=== PATIENT | female | born 1980 | race Caucasian/White ===

== ENCOUNTER 2024-11-21 08:40 | Inpatient (IN) | payer BC, SELFPAY ==
[2024-11-21] VITALS (17 sets, daily range): BP systolic 117–156; BP diastolic 77–101; PULSE 65–82; RESP 12–20; TEMP 36.2–37.1; O2SAT 94–100; BMI 39.5; BMI 39.4
--- NOTE | 2024-11-21 09:16 | PD.EDRME ---
Rapid Medical Screening Exam RME Arrival date/time: 11/21/24 08:40 Chief Complaint: Abdominal Pain Vital signs: Vital Signs Temperature 98.2 F 11/21/24 08:54 Pulse Rate 76 11/21/24 08:54 Respiratory Rate 17 11/21/24 08:54 Blood Pressure 136/91 H 11/21/24 08:54 Pulse Oximetry (%) 97 11/21/24 08:54 Oxygen Delivery Method Room Air 11/21/24 08:54 Pulse ox is 97% room air Vital signs reviewed by provider: Yes RME Narrative: Done by Dr. Zhu for abdominal pain workup. + POSITIVE FOR COLITIS
[2024-11-21 09:38] LABS: Lactate (Lactic Acid) 0.7 mMol/L (0.4-2.0)
[2024-11-21 09:46] LABS: Basophils # (Auto) 0.1 Thou/mm3 (0.0-0.2); Basophils % (Auto) 1 % (0-2.5); Eosinophils # (Auto) 0.2 Thou/mm3 (0.0-0.5); Eosinophils % (Auto) 3 % (0-10); Hematocrit 39.5 % (36.0-46.0); Hemoglobin 12.2 g/dL (12.0-16.0); Immature Granulocytes Auto 0.03 Thou/mm3 (0.00-0.00); Lymphocytes # (Auto) 2.3 Thou/mm3 (1.0-4.8); Lymphocytes % (Auto) 27 % (10-50); Mean Corpuscular HGB Conc 30.9 g/dl (31.0-37.0); Mean Corpuscular Hemoglobin 27.5 pg (25.0-35.0); Mean Corpuscular Volume 89 fL (80-100); Monocytes # (Auto) 0.7 Thou/mm3 (0.0-0.8); Monocytes % (Auto) 8 % (0-12); Neutrophils # (Auto) 5.1 Thou/mm3 (1.8-7.7); Neutrophils % (Auto) 61 % (37-80); Nucleated Red Blood Cell # 0.00 Thou/mm3 (0.00-0.00); Nucleated Red Blood Cell % 0 /100 WBC (0); Platelet Count 282 Thou/mm3 (140-440); RDW Standard Deviation 44.7 fL (36.4-46.3); Red Blood Count 4.43 Miln/mm3 (4.00-5.20); White Blood Count 8.4 Thou/mm3 (3.6-11.0)
--- NOTE | 2024-11-21 09:50 | XR_ITS ---
Examination: CT abdomen and pelvis without contrast. Coronal 3-D reconstructions. Sagittal 2-D reconstructions. Date and time of exam:November 21, 2024 1013 hours INDICATIONS: Blood in the stool generalized abdominal pain beginning 2 days ago CTDI: vol (mGy): 12.4 DLP: (mGycm): 811 Technique: Axial images of the abdomen have been obtained, 3 mm slice thickness Intravenous contrast material has not been administered. Low dose protocols were performed. One or more of the following dose reduction techniques were used; automated exposure control, adjustment of the mA and/or KV according to patient size, use of iterative reconstruction technique. Findings: No focal liver or splenic lesions No gallstones No pancreatic or adrenal mass. No renal or ureteral calculi, no hydronephrosis Calcified soft tissue mass in the left mesentery image 116, measuring 22 mm No bowel obstruction or nonspecific colitis pattern on this noncontrast study No diverticulitis Intact urinary bladder Absent uterus Moderate osteopenia IMPRESSION: Calcified soft tissue mass in the anterior left mesentery, 22 mm, clinical correlation advised No nonspecific colitis pattern on this noncontrast study No rectal wall thickening
[2024-11-21 10:02] LABS: Alanine Aminotransferase 59 U/L (10-49); Albumin, Serum 4.5 gm/dL (3.5-5.0); Albumin/Globulin Ratio 1.9 (1.2-2.2); Alkaline Phosphatase 88 U/L (46-116); Anion Gap 8 (7-16); Aspartate Amino Transferase 44 U/L (0-34); BUN/Creatinine Ratio 9 Ratio (12-20); Bilirubin,Total 0.3 mg/dL (0.3-1.2); Blood Urea Nitrogen 8 mg/dL (9-23); Calcium 9.6 mg/dL (8.3-10.6); Calcium (Corrected) 9.6 mg/dL (8.5-10.1); Carbon Dioxide 25.9 mMol/L (20.0-31.0); Chloride 107 mMol/L (98-107); Creatinine (Component) 0.9 mg/dL (0.6-1.3); Estimated Creatinine Clearance 113.6 mL/min (>60); Globulin 2.4 gm/dL (2.3-3.5); Glucose 91 mg/dL (74-106); Lipase 30 U/L (12-53); Osmolality,Calculated 279 (275-295); Potassium 4.1 mMol/L (3.4-5.1); Sodium 141 mMol/L (136-145); Total Protein 6.9 gm/dL (5.7-8.2); eGFR > 60 See Note
[2024-11-21 10:28] LABS: LDH (Lactate Dehydrogenase) 160 U/L (120-246)
--- NOTE | 2024-11-21 10:32 | EDNOTE_ITS ---
ED Abdominal Pain RME/HPI General Chief Complaint: Abdominal Pain Stated complaint: ABD PAIN, NO FOOD X 12 DAYS, SENT BY DR. ZHU Time seen by provider: 11/21/24 09:27 Arrival date/time: 11/21/24 08:40 RME / HPI RME / HPI narrative: Done by Dr. Zhu for abdominal pain workup. + POSITIVE FOR COLITIS DR. CHU MAIN ED EVALUATION 44 year old female with history of migraine headaches, hypertension presents to the ED for evaluation of abdominal pain beginning 12 days ago. Described as a bloating aching sensation that is located diffusely but most severe across lower abdomen, rating as moderate-severe. Accompanied by nausea, bloody vomiting, and bloody stools. States emesis is bright red with blood clots and stool is also bright red mush with blood clots. No mucous noted in stool. Accompanied by subjective fevers, chills, and sweats. Reportedly was evaluated at [facility] ER on 11/14/2024 and had imaging performed showing colitis. States she was discharged home with three different medications, one being an antibiotic. States she began the medications 4 days ago with no change. Consulted with GI Dr. Zhu yesterday and was advised to come to the ED for colonoscopy, endoscopy, and further management. Related Data Previous Rx's ?Medication ?Instructions ?Recorded oxycodone-acetaminophen 5 mg-325 1 tab PO Q8H PRN pain #30 tabs 11/22/21 mg tablet (Percocet) Allergies Allergy/AdvReac Type Severity Reaction Status Date / Time hydrocodone (From Vicodin) Allergy Intermediate ITCHY Verified 11/21/24 08:44 metoclopramide (From Reglan) Allergy Anxiety Verified 11/21/24 08:44 Review of Systems Review of Systems Systems Reviewed: All systems reviewed, normal except as documented Past Medical History Past Medical History NEUROLOGIC: Positive Migraine CARDIAC: Positive Hypercholesterolemia and Hypertension GASTROINTESTINAL: Positive Gastrointestinal Bleed REPRODUCTIVE: Positive Previous Pregnancies HEMATOLOGIC: Positive Anemia PSYCHO/SOCIAL: Positive Depression, Anxiety and Depression OTHER HISTORY: Positive Hospitalization and Anesthesia Reactions Family History FAMILY HISTORY: Positive Family Cardiac Disorders, Family Cancer and Family Surgery; Negative Family Psychiatric Problems, Family Respiratory Disorders, Family Gastrointestinal Problems or Family Anesthesia Reaction Surgical History SURGICAL: Positive Section (2018, 2020) Social History SMOKING STATUS: Never smoker SECOND HAND EXPOSURE: No ED Exam Narrative Physical exam: GENERAL APPEARANCE: alert and oriented x 4, well-developed, well-nourished, no acute distress HEENT: Normocephalic, atraumatic; pupils equal, round, reactive to light; EOMI; mucous membranes pink, moist; oropharynx clear NECK: Supple LUNGS: CTABL; no wheezes, no rales, no rhonchi HEART: Regular rate, regular rhythm; normal S1, S2; no murmurs ABDOMEN: non distended; normal BS; soft, no tenderness, no guarding, no rebound; no masses, no organomegaly, no hernia BACK: no CVA tenderness EXTREMITIES: atraumatic; no edema NEUROLOGIC: awake; alert and oriented x4; cranial nerves II-XII grossly intact; no focal sensory or motor deficits PSYCHIATRIC: appropriate mood and affect SKIN: warm, dry, normal color; no rashes Course Quality Measures none Orders Category Date Time Status Admit to Inpatient Status Routine Admission 11/21/24 12:23 Active Patient Condition Routine Admission 11/21/24 12:23 Ordered Aspiration precautions NOW Care 11/21/24 12:[address] Screening NOW Care 11/21/24 09:[address] Screening X1 Care 11/21/24 09:20 Completed Miscellaneous Nursing Order NOW Care 11/21/24 12:29 Active NPO NOW Care 11/21/24 12:24 Active Notify provider NEEDED Care 11/21/24 12:23 Active Sequential Compression Device QSHIFT Care 11/21/24 12:23 Active Consult to Gastroenterology Stat Cons 11/21/24 12:26 Ordered Diet NPO (NOW) Diet 11/21/24 12:[address] abdomen pelvis wo con Stat Exams 11/21/24 09:50 Completed CBC AM DRAW Lab 11/22/24 05:00 Ordered CBC AM DRAW Lab 11/23/24 05:00 Ordered CBC AM DRAW Lab 11/24/24 05:00 Ordered CBC Stat Lab 11/21/24 09:25 Completed Comprehensive Metabolic Panel AM DRAW Lab 11/22/24 05:00 Ordered Comprehensive Metabolic Panel AM DRAW Lab 11/23/24 05:00 Ordered Comprehensive Metabolic Panel AM DRAW Lab 11/24/24 05:00 Ordered Comprehensive Metabolic Panel Stat Lab 11/21/24 09:25 Completed Drug Screen,Urine Stat Lab 11/21/24 10:30 Completed LDH (Lactate Dehydrogenase) Stat Lab 11/21/24 09:25 Completed Lactate (Lactic Acid) Stat Lab 11/21/24 09:25 Completed Lipase Stat Lab 11/21/24 09:25 Completed Lipid Panel AM DRAW Lab 11/22/24 05:00 Ordered Magnesium AM DRAW Lab 11/22/24 05:00 Ordered Magnesium AM DRAW Lab 11/23/24 05:00 Ordered Magnesium AM DRAW Lab 11/24/24 05:00 Ordered Partial Thromboplastin Time Routine Lab 11/22/24 12:25 Ordered Phosphorous AM DRAW Lab 11/22/24 05:00 Ordered Phosphorous AM DRAW Lab 11/23/24 05:00 Ordered Phosphorous AM DRAW Lab 11/24/24 05:00 Ordered Prolactin* Stat Lab 11/21/24 09:25 Received Prothrombin Time with INR Routine Lab 11/22/24 12:25 Ordered Sed Rate (ESR) Stat Lab 11/21/24 09:25 Completed Thyroid Stimulating Hormone AM DRAW Lab 11/22/24 05:00 Ordered UA, C/S IF [Urinalysis, C/S if Indicated] Stat Lab 11/21/24 10:30 Completed HYDROmorphone INJ [Dilaudid Inj] Med 11/21/24 11:55 Discontinued 0.5 mg IVP X1 ONE Ondansetron Inj [Zofran Inj] Med 11/21/24 12:23 Active 4 mg IVP Q6H PRN Ondansetron Inj [Zofran Inj] Med 11/21/24 11:55 Discontinued 4 mg IVP X1 ONE Pantoprazole Inj [Protonix Inj] Med 11/22/24 09:00 Ordered 40 mg IVP QDAY Code Status Routine Oth 11/21/24 12:23 Ordered Vital Signs Vital signs: Vital Signs Temperature 98.2 F 11/21/24 08:54 Pulse Rate 76 11/21/24 08:54 Respiratory Rate 17 11/21/24 08:54 Blood Pressure 136/91 H 11/21/24 08:54 Pulse Oximetry (%) 97 11/21/24 08:54 Oxygen Delivery Method Room Air 11/21/24 08:54 Pulse ox is 97% on room air which is adequate. Abdominal Pain MDM MDM Narrative MDM Narrative:: Yvonne Blackwell am scribing for and in the presence of Dr. Chu. Patient data External records reviewed:: [facility] previous records (I reviewed ED visit on 01/31/2022 ) Clinical information provided by:: patient Social determinants that could affect healthcare access:: substance use (Marijuana ) Patient has the following chronic illnesses:: Hypertension, recently diagnosed with colitis How is presenting disease/condition affected by chronic disease/condition?: exacerbated by Evaluation data The following diagnostics were reviewed and interpreted by me:: lab results and radiology exam(s) Lab and/or radiology exams considered but not ordered:: None Interpretation Summary: Ordering Physician: Kaushik Schroeder PA-C Date of Service: 11/21/24 Procedure(s): CT abdomen pelvis wo con Accession Number(s): [id number] cc: Javier Pino MD; Alex Hammond MD; Kaushik Schroeder PA-C~ Examination: CT abdomen and pelvis without contrast. Coronal 3-D reconstructions. Sagittal 2-D reconstructions. Date and time of exam:November 21, 2024 1013 hours INDICATIONS: Blood in the stool generalized abdominal pain beginning 2 days ago CTDI: vol (mGy): 12.4 DLP: (mGycm): 811 Technique: Axial images of the abdomen have been obtained, 3 mm slice thickness Intravenous contrast material has not been administered. Low dose protocols were performed. One or more of the following dose reduction techniques were used; automated exposure control, adjustment of the mA and/or KV according to patient size, use of iterative reconstruction technique. Findings: No focal liver or splenic lesions No gallstones No pancreatic or adrenal mass. No renal or ureteral calculi, no hydronephrosis Calcified soft tissue mass in the left mesentery image 116, measuring 22 mm No bowel obstruction or nonspecific colitis pattern on this noncontrast study No diverticulitis Intact urinary bladder Absent uterus Moderate osteopenia IMPRESSION: Calcified soft tissue mass in the anterior left mesentery, 22 mm, clinical correlation advised No nonspecific colitis pattern on this noncontrast study No rectal wall thickening Dictated By: Alex Hammond MD Signed By: <Electronically signed by Alex Hammond MD in OV> 11/21/24 1154 Medications / Prescriptions Medications or Prescriptions considered but not ordered:: None Medication administrations:: Medication Administration History Ondansetron HCl (Ondansetron Inj 2 Mg/Ml Inj 2 Ml) 4 mg IVP Q6H PRN; Protocol PRN Reason: NAUSEA OR VOMITING Stop: 12/21/24 12:22 Pantoprazole Sodium (Pantoprazole Inj 40 Mg Vial) 40 mg IVP QDAY ROSAURA Stop: 12/22/24 08:59 Discontinued Medications Hydromorphone HCl (Hydromorphone Inj 2 Mg/Ml Vial) 0.5 mg IVP X1 ONE Stop: 11/21/24 11:56 Last Admin: 11/21/24 12:31 Dose: 0.5 mg Documented By: FELIPE Ondansetron HCl (Ondansetron Inj 2 Mg/Ml Inj 2 Ml) 4 mg IVP X1 ONE; Protocol Stop: 11/21/24 11:56 Last Admin: 11/21/24 12:29 Dose: 4 mg Documented By: FELIPE See above Consultations Consultation(s) initiated? (list below): Yes Consultation #1 (Physician, Specialty, Details): I spoke with residents working with Dr. Bowers. Discussed patients PMHx, HPI, ED course, exam findings, labs, and radiology results. The hospitalist agree to accept the patient for admission. Diagnosis Differential diagnosis abdominal pain: abdominal pain, diverticulitis and other (colitis ) Most likely diagnosis given after review of the tests above:: Abdominal pain Admission Indicated Admission indicated?: indicated Admission Request Was there a request for admission?: Yes Admission Attestation Admission request attestation: Discussed case with [] from Hospitalist service regarding admission. Discussed patients ED course, exam findings, labs, and radiology results. The Hospitalist [agrees,declines] to accept the patient for admission. Disposition Plan Disposition Plan: Admit Discharge Plan Plan Patient Disposition: Admit Acute Care w/in Hospital Prescriptions/Referrals Prescriptions/Med Rec: No Action oxycodone-acetaminophen [Percocet] 5-325 mg tablet 1 tab PO Q8H MDD 15 PRN (Reason: pain) Qty: 30 0RF Referrals: Javier Pino MD [Primary Care Provider] - In 1 week Problem List Clinical Impression: Abdominal pain Patient/Caregiver Discharge Instructions Print Language: Ukrainian Stand Alone Forms: Tarah Award Info., Patient Portal Info Letter
[2024-11-21 10:49] LABS: Sed Rate (ESR) 55 mm/hr (0-20)
[2024-11-21 11:03] LABS: Collection Type, Urine Clean Catch
[2024-11-21 11:16] LABS: Bacteria,Urine Rare; Bilirubin,Urine Negative (Negative); Blood,Urine Negative (Negative); Clarity,Urine Clear (Clear/Hazy); Color,Urine Yellow (Lt Yel-Yel); Culture Indicated,Urine Not Indicated; Glucose, Urine Negative (Negative); Ketones,Urine Trace (Negative); Leukocyte Esterase,Urine Negative (Negative); Nitrite,Urine Negative (Negative); PH,Urine 6.5 (5.0-7.0); Protein,Urine Trace (Neg - Trace); RBC,Urine 3 /hpf (0-3); Specific Gravity,Urine 1.020 (1.001-1.035); Squamous Epithelial Cell,Urine 5 /hpf (0-5); Urobilinogen,Urine Negative mg/dL (0.0-1.0); WBC,Urine 1 /hpf (0-5)
[2024-11-21 11:25] LABS: Amphetamine/Methamp Scrn,U Negative (Negative); Barbiturate Screen,Urine Negative (Negative); Benzodiazepines Screen,Urine Positive (Negative); Benzoylecgonine Screen, Ur Negative (Negative); Fentanyl Screen,Urine Positive (Negative); Opiate Screen,Urine Negative (Negative); THC Screen,Urine Positive (Negative)
[2024-11-21] MEDS: ONDANSETRON INJ 2 MG/ML INJ 2 ML 4 MG IVP ×2 (12:29→23:08)
[2024-11-21] MEDS: HYDROmorphone INJ 2 MG/ML VIAL 0.5 MG IVP (12:31)
--- NOTE | 2024-11-21 15:25 | PC.NURSE ---
Patient states pain 10/10 in head and stomach. Informed hospitalist via phone and awaiting further orders.
--- NOTE | 2024-11-21 17:01 | ESCONSULT_ITS ---
HPI Data of Consult Requesting Physician: Og Bowers MD Primary Care Provider: Javier Pino MD Consult Narrative Reason for consult: Hematemesis, hematochezia, nausea vomiting, pain abdomen History of present illness: 44 years old female sent to the emergency room by me as she appeared very sick on examination in the office For the last 3 weeks she has [facility] [place] [facility] scan of the abdomen pelvis there showed diffuse colitis she was sent home on antibiotics no relief She cannot keep anything down Losing weight has intractable nausea vomiting with hematemesis and hematochezia She was sent to the emergency room but after discussion with the ER physician patient was subsequently admitted for further evaluation and management CT scan of the abdomen pelvis without contrast showed 22 mm mass in the anterior mesentery otherwise negative cc:: cc: Og Bowers MD Review of Systems Review of Systems Systems Reviewed: All systems reviewed, normal except as documented Past Medical History Surgical History OTHER SURGICAL HX: Migraine headaches Depression x 2 Meds Home Medications and Allergies Allergies Allergy/AdvReac Type Severity Reaction Status Date / Time hydrocodone (From Vicodin) Allergy Intermediate ITCHY Verified 11/21/24 08:44 metoclopramide (From Reglan) Allergy Anxiety Verified 11/21/24 08:44 Exam Vital Signs Temp Pulse Resp BP Pulse Ox O2 Del Method 97.8 F 69 19 133/87 H 95 Room Air 11/21/24 16:28 11/21/24 16:28 11/21/24 16:28 11/21/24 16:28 11/21/24 16:28 11/21/24 16:28 Constitutional Comments: Chronically ill-appearing Routine Respiratory Exam Comments: Normal to auscultation Routine Abdominal Exam Comments: Generalized tenderness positive bowel sounds Results Labs 11/21/24 09:25 11/21/24 09:25 Labs: Short CBC 11/21/24 Range/Units 09:25 WBC 8.4 (3.6-11.0) Thou/mm3 Hgb 12.2 (12.0-16.0) g/dL Hct 39.5 (36.0-46.0) % Plt Count 282 (140-440) Thou/mm3 BMP 11/21/24 09:25 Sodium 141 Potassium 4.1 Chloride 107 Carbon Dioxide 25.9 BUN 8 L Creatinine 0.9 Glucose 91 Calcium 9.6 Liver Function 11/21/24 Range/Units 09:25 Total Bilirubin 0.3 (0.3-1.2) mg/dL AST 44 H (0-34) U/L ALT 59 H (10-49) U/L Alkaline Phosphatase 88 (46-116) U/L Albumin 4.5 (3.5-5.0) gm/dL Urine 11/21/24 Range/Units 10:30 Urine Color Yellow (Lt Yel-Yel) Urine Clarity Clear (Clear/Hazy) Urine pH 6.5 (5.0-7.0) Ur Specific [place] 1.020 (1.001-1.035) Urine Protein Trace (Neg - Trace) Urine Glucose (UA) Negative (Negative) Assessment and Plan Additional Assessment & Plan Additional Plan: # Nausea vomiting # Hematemesis # Hematochezia # Abnormal CT scan of the abdomen pelvis Plan Consent obtained for fiberoptic esophagogastroduodenoscopy with possible biopsy possible therapeutic intervention under intravenous moderate sedation n.p.o. IV Protonix Effective pain control if the EGD is negative we will consider doing a fiberoptic colonoscopy after GoLytely prep provided the patient can tolerate GoLytely Thank you again for the opportunity to participate in the care of this patient Other medical problems include Migraine headaches Anxiety neurosis 22 mm mass in the anterior mesentery will follow with the imaging studies as well as will discuss the case with the IR to see if this can be biopsied
[2024-11-21] MEDS: MORPHINE SULF INJ 10 MG/ML VIAL 4 MG IVP ×2 (17:10→21:46)
[2024-11-21 18:27] LABS: HCG,Qualitative Serum Negative
--- NOTE | 2024-11-21 19:14 | PC.NURSE ---
Report given to Rachael MAHARAJ via phone. Will transfer patient to floor upon completion of endoscopy.
--- NOTE | 2024-11-21 20:20 | ESHP_ITS ---
<Statement entered by Manuel Sanford MD - 11/22/24 07:54> Senior Resident Attestation: I supervised/discussed management plan with internet e commerce specialist physician Dr. Morgan, and was involved in the care of this patient. I personally saw and examined the patient and discussed the assessment and plan with the entire medicine team, including my attending. I agree with the assessment and plan as documented. Patient is a 44 years old female with PMH of migraine headaches and hypertension was referred to the emergency department by Dr. Zhu for further evaluation of intractable generalized abdominal pain, nausea, and multiple episodes of hematemesis and hematochezia for 12 days. Patient was planned for endoscopy on the same day, placed on NPO and admitted for further management. Patient's care was discussed with attending physician, Dr. Bowers. Manuel Sanford MD PGY-3. Documentation for date of: 11/21/24 HPI History of Present Illness History of present illness: 44-year-old female with a past medical history of migraine headaches and hypertension was referred to the emergency department by Dr. Zhu for further evaluation of intractable generalized abdominal pain, nausea, and multiple episodes of hematemesis and hematochezia for 12 days. The patient had initially presented to [facility] ED on 11/14 with complaints of a severe migraine. She returned to the [facility] ED on 11/17 due to worsening abdominal pain. A CT abdomen/pelvis with contrast revealed findings consistent with colitis, and she was discharged on ciprofloxacin 500 mg BID and metronidazole 500 mg BID, which she did not complete. Following discharge, she experienced persistent and worsening symptoms, including diffuse abdominal pain, ongoing nausea and vomiting, and an inability to tolerate oral intake. She described the abdominal pain as a cramping twisting sensation in the lower abdomen. She endorsed unintentional weight loss, fevers, chills, diaphoresis, and dysuria. ED Course - Vitals: BP 136/91, HR 76, RR 17, T 98.2F, O2 Sat 97% on room air - Labs: WBC 3.4, hemoglobin 12.2, hematocrit 39.5, platelet 282, ESR 55, BUN 8, creatinine 0.9, AST 44, ALT 59, alkaline phosphatase 88, total bilirubin 0.3. UA negative. Urine tox: positive for fentanyl, benzodiazepine, and THC. - Imaging: CT abd/pelvis showed calcified soft tissue mass in the anterior left mesentery, 22 mm, no nonspecific colitis pattern. - Treatment: Ondansetron 4mg x1, Hydromorphone 0.5 mg x1 Review of Systems Review of Systems Narrative Review of Systems: All 13 review of systems are negative except as listed above in the HPI. Past Medical History Past Medical History Comments PMH COMMENT: Past Medical History: as above Surgical History: in 2019 and 2021, hysterectomy 2021 Family History: Dad had kidney failure, CLL, bladder cancer. DM in both parents. Social History: Denies history of smoking, denies current alcohol use, denies recreational drug use Current Medications: pending med recs Allergies: hydrocodone from Vicodin (itchy) Exam Vital Signs Temp Pulse Resp BP Pulse Ox O2 Del Method O2 Flow Rate 98.2 F 73 12 134/96 H 98 Room Air 3 11/21/24 18:07 11/21/24 20:15 11/21/24 20:15 11/21/24 20:15 11/21/24 20:15 11/21/24 18:07 11/21/24 20:15 Narrative Exam Physical Exam General: Awake and in no acute distress. Conversational and non-toxic appearing. HEENT: Normocephalic, atraumatic, mucous membranes moist. Heart: Regular rate and rhythm, no murmurs. Lungs: Clear to auscultation with no wheezing or crackles. Abdomen: Soft, nondistended, tender to superficial palpation in lower abdomen. No guarding or rebound tenderness. Neurologic: Alert and oriented x3, no gross neurological deficit, and patient able to move all 4 extremities. Extremities: No edema. Skin: No rash or ecchymoses. Results: Labs 11/22/24 05:02 11/22/24 05:02 Labs: Short CBC 11/21/24 Range/Units 09:25 WBC 8.4 (3.6-11.0) Thou/mm3 Hgb 12.2 (12.0-16.0) g/dL Hct 39.5 (36.0-46.0) % Plt Count 282 (140-440) Thou/mm3 BMP 11/21/24 09:25 Sodium 141 Potassium 4.1 Chloride 107 Carbon Dioxide 25.9 BUN 8 L Creatinine 0.9 Glucose 91 Calcium 9.6 Liver Function 11/21/24 Range/Units 09:25 Total Bilirubin 0.3 (0.3-1.2) mg/dL AST 44 H (0-34) U/L ALT 59 H (10-49) U/L Alkaline Phosphatase 88 (46-116) U/L Albumin 4.5 (3.5-5.0) gm/dL Urine 11/21/24 Range/Units 10:30 Urine Color Yellow (Lt Yel-Yel) Urine Clarity Clear (Clear/Hazy) Urine pH 6.5 (5.0-7.0) Ur Specific Bureau 1.020 (1.001-1.035) Urine Protein Trace (Neg - Trace) Urine Glucose (UA) Negative (Negative) Quality Measures Quality Measures none Medications Home Medications and Allergies Home Medications ?Medication ?Instructions ?Recorded ?Confirmed ?Type Ambien See Rx Instructions .Route 0 11/21/24 11/21/24 History .COMPLEX insomnia clonazepam 1 mg tablet 2 mg PO Q12H 11/21/24 History lisinopril 10 2 tab PO HS 11/21/24 5 History mg-hydrochlorothiazide 12.5 mg tablet rimegepant 75 mg disintegrating 75 mg PO QDAY PRN migr montrell headache 11/21/24 11/21/24 History tablet (Nurtec ODT) sertraline 100 mg tablet (Zoloft) 100 mg PO HS 5 11/21/24 History Allergies Allergy/AdvReac Type Severity Reaction Status Date / Time hydrocodone (From Vicodin) Allergy Intermediate ITCHY Verified 11/21/24 08:44 metoclopramide (From Reglan) Allergy Anxiety Verified 11/21/24 08:44 Visit Medications Acetaminophen (Acetaminophen 325 Mg Tablet) 650 mg PO Q6H PRN PRN Reason: Fever >101.5 Stop: 12/21/24 14:07 Diphenhydramine HCl (Diphenhydramine Inj 50 Mg/Ml Vial) 25 mg IVP [id number] PRN PRN Reason: MODERATE SEDATION Stop: 11/21/24 21:53 Fentanyl Citrate (Fentanyl Cit Inj 50 Mcg/Ml Amp 2ml) 50 mcg IVP Q2M PRN PRN Reason: MODERATE SEDATION Stop: 11/21/24 21:53 Midazolam HCl (Midazolam Inj 1 Mg/Ml Vial 2 Ml) 2 mg IVP Q2M PRN PRN Reason: Moderate Sedation Stop: 11/21/24 21:53 Morphine Sulfate (Morphine Sulf Inj 10 Mg/Ml Vial) 4 mg IVP Q6HR PRN PRN Reason: PAIN SCALE 4-6 (Moderate Stop: 11/26/24 16:34 Last Admin: 11/21/24 17:10 Dose: 4 mg Ondansetron HCl (Ondansetron Inj 2 Mg/Ml Inj 2 Ml) 4 mg IVP Q6H PRN; Protocol PRN Reason: NAUSEA OR VOMITING Stop: 12/21/24 12:22 Pantoprazole Sodium (Pantoprazole Inj 40 Mg Vial) 40 mg IVP QDAY ROSAURA Stop: 12/22/24 08:59 Sennosides (Senna Tablet) 1 tab PO QDAY PRN; Protocol PRN Reason: constipation Stop: 12/21/24 14:07 Discontinued Medications Benzocaine (Benzocaine 20% (Hurricaine) [place] 1 Dose) 1 dose TOP X1 ONE Stop: 11/21/24 19:54 Hydromorphone HCl (Hydromorphone Inj 2 Mg/Ml Vial) 0.5 mg IVP X1 ONE Stop: 11/21/24 11:56 Last Admin: 11/21/24 12:31 Dose: 0.5 mg Ondansetron HCl (Ondansetron Inj 2 Mg/Ml Inj 2 Ml) 4 mg IVP X1 ONE; Protocol Stop: 11/21/24 11:56 Last Admin: 11/21/24 12:29 Dose: 4 mg Assessment & Plan Plan 44-year-old female with history of migraines and hypertension presenting with 12 days of intractable lower abdominal pain, nausea, hematemesis, and hematochezia, admitted for concern of GI bleed. #GI bleed (upper vs lower vs unknown source) # Hematemesis # Hematochezia Hemoglobin currently stable at 12.2. Plan - GI consulted - plan for EGD today 11/21. If EGD is negative, consider doing a colonoscopy provided the patient can tolerate GoLytely. - Monitor H/H - Type and screen - Maintain NPO - Avoid NSAIDs and anticoagulants - Start Pantoprazole 40 mg BID #Intractable abdominal pain Persistent symptoms despite antibiotics for presumed colitis. Ongoing diffuse lower abdominal pain with poor oral intake and weight loss Plan - Ondansetron 4 mg Q6H for nausea - IV Morphine 4 mg Q6H PRN for pain control Chronic conditions #Migraine headaches #Hypertension - Continue monitoring BP Health Maintenance Deposition: Med/Surg DVT prophylaxis: Sequential Compression Device GI prophylaxis: Pantoprazole 40 mg IV BID Diet: NPO Mccormick: None Lines: Peripheral IV CODE STATUS: FULL Patient plan of care was discussed with the senior resident, Dr. Sanford, and attending physician, Dr. Bowers. Melvin Morgan, PGY-1 Attending Provider Attestation/Addendum I have examined the patient, reviewed labs and imaging findings, discussed the case with the resident(s), and reviewed entered orders. I agree with the plan of care as outlined in this note, with these additional summaries/recommendations: After examination of the patient and review of the clinical data, I feel that this patient needs admission to the hospital for further treatment and evaluation. Patient seen at bedside. She was seen by outpatient provider who recommended she go to the emergency room. She endorses hematemesis, bright red blood in stool, and intractable abdominal pain. Patient diagnosed with GI bleed. Start PPI, IVF, and NPO. Gastroenterology consulted with plans for endoscopic. If no source found then he will likely proceed with colonoscopy. Patient reports she recently had an imaging study done which showed colitis and symptoms may be representing IBD. Continue pain management. Hold all chemical anticoagulation, NSAIDs, aspirin, steroids, alcohol, and smoking. Patient also noted to have minimal transaminitis which we will monitor for now. Repeat LFTs in AM. U-Tox positive for fentanyl, benzodiazepines, and THC. We will discuss results with patient. Hold home medicines for now. Patient updated on the plan and agreement. All questions answered to satisfaction. Please see residents note for additional details and management. Dr. Elissa MD
--- NOTE | 2024-11-21 20:57 | SUR.PHASEI ---
PATIENT DRINKING 7UP, TOLERATING WELL.
[2024-11-21] MEDS: NA SU/NAHCO3/KC/PEG (Golytely) 4,000 ML BTL 4000 ML PO (21:55)
[2024-11-21] MEDS: SERTRALINE HCL 25 MG TABLET 100 MG PO (23:08)
[2024-11-22] VITALS (19 sets, daily range): BP systolic 115–163; BP diastolic 58–104; PULSE 7–89; RESP 12–20; TEMP 35.9–37.1; O2SAT 94–100; BMI 39.5
[2024-11-22] MEDS: MORPHINE SULF INJ 10 MG/ML VIAL 4 MG IVP (03:18)
[2024-11-22] MEDS: ONDANSETRON INJ 2 MG/ML INJ 2 ML 4 MG IVP ×4 (05:40→23:29)
[2024-11-22 06:02] LABS: Basophils # (Auto) 0.0 Thou/mm3 (0.0-0.2); Basophils % (Auto) 0 % (0-2.5); Eosinophils # (Auto) 0.2 Thou/mm3 (0.0-0.5); Eosinophils % (Auto) 3 % (0-10); Hematocrit 36.5 % (36.0-46.0); Hemoglobin 11.6 g/dL (12.0-16.0); Immature Granulocytes Auto 0.03 Thou/mm3 (0.00-0.00); Lymphocytes # (Auto) 2.2 Thou/mm3 (1.0-4.8); Lymphocytes % (Auto) 32 % (10-50); Mean Corpuscular HGB Conc 31.8 g/dl (31.0-37.0); Mean Corpuscular Hemoglobin 28.0 pg (25.0-35.0); Mean Corpuscular Volume 88 fL (80-100); Monocytes # (Auto) 0.6 Thou/mm3 (0.0-0.8); Monocytes % (Auto) 8 % (0-12); Neutrophils # (Auto) 3.9 Thou/mm3 (1.8-7.7); Neutrophils % (Auto) 56 % (37-80); Nucleated Red Blood Cell # 0.00 Thou/mm3 (0.00-0.00); Nucleated Red Blood Cell % 0 /100 WBC (0); Platelet Count 227 Thou/mm3 (140-440); RDW Standard Deviation 43.9 fL (36.4-46.3); Red Blood Count 4.14 Miln/mm3 (4.00-5.20); White Blood Count 7.0 Thou/mm3 (3.6-11.0)
[2024-11-22 06:38] LABS: Alanine Aminotransferase 56 U/L (10-49); Albumin, Serum 4.0 gm/dL (3.5-5.0); Albumin/Globulin Ratio 1.8 (1.2-2.2); Alkaline Phosphatase 80 U/L (46-116); Anion Gap 8 (7-16); Aspartate Amino Transferase 43 U/L (0-34); BUN/Creatinine Ratio 9 Ratio (12-20); Bilirubin,Total 0.3 mg/dL (0.3-1.2); Blood Urea Nitrogen 7 mg/dL (9-23); Calcium 9.3 mg/dL (8.3-10.6); Calcium (Corrected) 9.3 mg/dL (8.5-10.1); Carbon Dioxide 28.6 mMol/L (20.0-31.0); Cardiac Risk Estimate 7.3 RATIO (3.7-5.6); Chloride 103 mMol/L (98-107); Cholesterol 190 mg/dL (132-200); Creatinine (Component) 0.8 mg/dL (0.6-1.3); Estimated Creatinine Clearance 127.5 mL/min (>60); Globulin 2.2 gm/dL (2.3-3.5); Glucose 76 mg/dL (74-106); HDL Cholesterol 26 mg/dL (40-60); LDL Cholesterol,Calculated 135 mg/dL (0-130); Magnesium 2.0 mg/dL (1.6-2.6); Osmolality,Calculated 276 (275-295); Phosphorous 3.1 mg/dL (2.4-5.1); Potassium 3.9 mMol/L (3.4-5.1); Sodium 140 mMol/L (136-145); Thyroid Stimulating Hormone 1.87 uIU/mL (0.55-4.78); Total Protein 6.2 gm/dL (5.7-8.2); Triglycerides 143 mg/dL (30-150); eGFR > 60 See Note
[2024-11-22] MEDS: HYDROmorphone INJ 2 MG/ML VIAL 1 MG IVP ×2 (09:36→22:08)
[2024-11-22 12:56] LABS: INR 1.0 (0.9-1.3); Partial Thromboplastin Time 31.2 Seconds (22.0-36.0); Prothrombin Time 11.4 Seconds (9.0-12.2)
--- NOTE | 2024-11-22 15:57 | PC.SS ---
Patient is 44 year old female presenting to the hospital for GI bleeding. PIPE OR STEAM FITTER FURNACE INSTALLER made contact with patient at bedside and explained role and reason for visit. PIPE OR STEAM FITTER FURNACE INSTALLER confirmed demographic information with patient. Patient stated that her next of kin is Jered Gonzalez phone: [phone]. Emergency contact is mother Clare [phone]. Patient stated that her PCP is Dr. Pino last appointment was on 11/02/24. Patient reported that she is unemployed, does not use DME, and would like to d/c home once medically clear. Patient stated that will provide transportation. Patient has no other questions or concerns. PCP: Dr. Pino Next of kin: Jered Turnerck D/c: home
--- NOTE | 2024-11-22 16:02 | ESPR_ITS ---
<Statement entered by Roni Valadez MD - 11/22/24 23:14> Patient was examined and case was reviewed with team including attending physician. Note reviewed, I agree with most of its contents and agree with the patient's care as documented by Dr. Morgan Patient seen today at the bedside found awake, alert, orientedx3. No overnight events reported. Vital signs stable at this time. No more episodes of hematemesis at this time. Patient had endoscopy done which showed some esophageal ulcers. Plan is to pursue colonoscopy as patient endorsed pancho blood per rectum with stooling. Will continue to monitor daily CBCs. Case discussed with my attending Dr. Elissa Valadez MD PGY-2 Documentation for date of: 11/22/24 Subjective Subjective Interval history: Patient was seen at the bedside this morning. No overnight events reported. She stated that morphine is worsening her migraines and requested a switch to Dilaudid, which was effective in the ED yesterday. She also requested a change in her clonazepam regimen, noting that she typically takes 2 mg in the morning and at bedtime, but only received one dose last night. Patient reported that her will be bringing in her home medication, Nurtec, which she takes as needed for migraines. She noted a sore abdomen after completing her GoLYTELY prep last night and continues to feel weak and fatigued. However, her sore throat?attributed to frequent pre-admission vomiting?has improved. She is passing flatus and denies chest pain or any further episodes of vomiting. Exam Vital Signs Temp Pulse Resp BP Pulse Ox O2 Del Method O2 Flow Rate 96.8 F 71 16 124/94 H 96 Room Air 3 11/22/24 12:11/22/24 12:11/22/24 12:11/22/24 12:11/22/24 12:11/22/24 12:11/21/24 20:25 Narrative Exam Physical Exam General: Awake and in no acute distress. Conversational and non-toxic appearing. HEENT: Normocephalic, atraumatic, mucous membranes moist. Heart: Regular rate and rhythm, no murmurs. Lungs: Clear to auscultation with no wheezing or crackles. Abdomen: Soft, nondistended, tender to superficial palpation in lower abdomen. No guarding or rebound tenderness. Neurologic: Alert and oriented x3, no gross neurological deficit, and patient able to move all 4 extremities. Extremities: No edema. Skin: No rash or ecchymoses. Objective Labs 11/23/24 05:00 11/23/24 05:00 Labs: Laboratory Results - last 24 hr 11/21/24 11/21/24 11/22/24 17:26 22:35 05:02 WBC 7.0 RBC 4.14 Hgb 11.6 L Hct 36.5 MCV 88 MCH 28.0 MCHC 31.8 RDW Std Deviation 43.9 Plt Count 227 D Neut % (Auto) 56 Lymph % (Auto) 32 [place] % (Auto) 8 Eos % (Auto) 3 Baso % (Auto) 0 Neut # (Auto) 3.9 Lymph # (Auto) 2.2 Weakley # (Auto) 0.6 Eos # (Auto) 0.2 Baso # (Auto) 0.0 Immature Gran # (Auto) 0.03 H Absolute Nucleated RBC 0.00 Immature Gran % 0 Nucleated RBC % 0 PT INR APTT Sodium 140 Potassium 3.9 Chloride 103 Carbon Dioxide 28.6 Anion Gap 8 BUN 7 L Creatinine 0.8 Estim Creat Clear Calc 127.5 eGFR > 60 BUN/Creatinine Ratio 9 L Glucose 76 Calculated Osmolality 276 Calcium 9.3 Corrected Calcium 9.3 Phosphorus 3.1 Magnesium 2.0 Total Bilirubin 0.3 AST 43 H ALT 56 H Alkaline Phosphatase 80 Total Protein 6.2 Albumin 4.0 D Globulin 2.2 L Albumin/Globulin Ratio 1.8 Triglycerides 143 Cholesterol 190 LDL Cholesterol, Calc 135 H HDL Cholesterol 26 L Cholesterol/HDL Ratio 7.3 H TSH 1.87 HCG, Qual Negative Blood Type O Negative Antibody Screen NEGATIVE Blood Bank Wristband ID Yes 11/22/24 12:10 WBC RBC Hgb Hct MCV MCH MCHC RDW Std Deviation Plt Count Neut % (Auto) Lymph % (Auto) Weak[place] % (Auto) Eos % (Auto) Baso % (Auto) Neut # (Auto) Lymph # (Auto) Weakley # (Auto) Eos # (Auto) Baso # (Auto) Immature Gran # (Auto) Absolute Nucleated RBC Immature Gran % Nucleated RBC % PT 11.4 INR 1.0 APTT 31.2 Sodium Potassium Chloride Carbon Dioxide Anion Gap BUN Creatinine Estim Creat Clear Calc eGFR BUN/Creatinine Ratio Glucose Calculated Osmolality Calcium Corrected Calcium Phosphorus Magnesium Total Bilirubin AST ALT Alkaline Phosphatase Total Protein Albumin Globulin Albumin/Globulin Ratio Triglycerides Cholesterol LDL Cholesterol, Calc HDL Cholesterol Cholesterol/HDL Ratio TSH HCG, Qual Blood Type Antibody Screen Blood Bank Wristband ID Quality Measures Quality Measures none Assessment & Plan Assessment Current Active Medications: Generic Name Dose Route Start Last Admin Trade Name Freq PRN Reason Stop Dose Admin Acetaminophen 650 mg 11/21/24 14:08 Acetaminophen 325 Mg Tablet PO 12/21/24 14:07 Q6H PRN Fever >101.5 Clonazepam 2 mg 11/22/24 21:00 Clonazepam 0.5 Mg Tablet PO 11/27/24 20:59 BID ROSAURA Zolpidem Er 12.5 Mg 0 ea 11/22/24 21:00 Tablet PO 12/22/24 20:59 HS ROSAURA Nurtec Odt 75mg 0 ea 11/22/24 12:15 Tablet PO 12/22/24 12:14 QDAY PRN Migraine Headache Hydromorphone HCl 0.5 mg 11/22/24 16:00 Hydromorphone Inj 2 Mg/Ml Vial IVP 11/27/24 09:12 Q12H PRN PAIN SCALE 4-6 (Moderate Hydromorphone HCl 0.5 mg 11/22/24 16:00 Hydromorphone Inj 2 Mg/Ml Vial IVP 11/22/24 16:01 X1 ONE Ondansetron HCl 4 mg 11/22/24 00:00 11/22/24 12:06 Ondansetron Inj 2 Mg/Ml Inj 2 Ml IVP 12/22/24 00:00 4 mg Q6HR ROSAURA Administration Protocol Pantoprazole Sodium 40 mg 11/21/24 21:00 11/22/24 09:35 Pantoprazole Inj 40 Mg Vial IVP 12/21/24 20:59 40 mg BID ROSAURA Administration Sennosides 1 tab 11/21/24 14:08 Senna Tablet PO 12/21/24 14:07 QDAY PRN constipation Protocol Sertraline HCl 100 mg 11/21/24 23:00 11/21/24 23:08 Sertraline Hcl 25 Mg Tablet PO 12/21/24 22:59 100 mg HS RSOAURA Administration Plan 44-year-old female with history of migraines and hypertension presenting with 12 days of intractable lower abdominal pain, nausea, hematemesis, and hematochezia, admitted for concern of GI bleed. Patient had EGD on 11/21 with no bleeding source identified, plan to do colonoscopy today 11/22. #GI bleed (upper vs lower vs unknown source) #Hematemesis #Hematochezia Hemoglobin currently stable at 12.2 --> 11.6 EGD (11/21) findings: esophageal ulcers, esophagitis, gastritis, normal duodenum, 4cm hiatal hernia Plan - GI is following - EGD negative, plan to do colonoscopy today (11/22), patient finished GoLytely prep. - Monitor H/H. - Maintain NPO. - Avoid NSAIDs, anticoagulants, aspirin. - Continue IV Pantoprazole 40 mg every 12 hours. - Continue IV Zofran 4mg every 6 hours. - Pending EGD biopsies. #Intractable abdominal pain Persistent symptoms despite antibiotics for presumed colitis. Ongoing diffuse lower abdominal pain with poor oral intake and weight loss. CT abd/pelvis: 22 mm mass in the anterior mesentery. Plan - Ondansetron 4 mg Q6H for nausea. - Stop IV Morphine 4 mg Q6H PRN for pain control. - Start IV Hydromorphone 0.5 mg Q6H PRN for pain control per patient request. - GI will speak to IR to see if mass can be biopsied. #Transaminitis (mild) AST 44 --> 43 ALT 59 --> 56 Plan - Dr. Zhu (GI) recommended labs for liver work-up. - Actin Antibody (IgG) - Alpha-1 Antitrypsin - BRENNEN IFA screen - Ceruloplasmin - Copper - Mitochondrial Ab - Hepatitis Acute Panel - Iron Panel - AFP - Repeat LFTs in AM. Chronic conditions #Migraine headaches #Hypertension - Continue monitoring BP Health Maintenance Deposition: Med/Surg DVT prophylaxis: Sequential Compression Device GI prophylaxis: Pantoprazole 40 mg IV BID Diet: NPO Mccormick: None Lines: Peripheral IV CODE STATUS: FULL Patient plan of care was discussed with the senior resident, Dr. Mattson, and attending physician, Dr. Bowers. Melvin Morgan, DO PGY-1 Attending Provider Attestation/Addendum I have examined the patient, reviewed labs and imaging findings, discussed the case with the resident(s), and reviewed entered orders. I agree with the plan of care as outlined in this note, with these additional summaries/recommendations: Patient seen at bedside. No acute overnight events. Today patient continues to endorse severe intractable abdominal pain. We will continue to optimize pain management as needed. She is status post EGD yesterday which revealed many linear esophageal ulcers, esophagitis, and significant gastritis. Biopsies were taken and we will await pathology reports. Given patient's abdominal pain unresolving and presented with GI bleed she will go for colonoscopy today. She completed GoLytely. Minimal transaminitis improving. Patient updated on the plan and agreement. All questions answered satisfaction. Please see residents note for additional details of management. Dr. Elissa MD
[2024-11-22] MEDS: HYDROmorphone INJ 2 MG/ML VIAL 0.5 MG IVP (16:12)
[2024-11-22 16:38] LABS: Iron 27 mcg/dL (50-170); Percent Iron Saturation 8 % (20-55); Total Iron Binding Capacity 309 mcg/dL (250-425); Unsaturated Iron Binding 282 (225-295)
[2024-11-22 17:21] LABS: AFP Non-Pregnant 1.80 ng/mL (<8.10); Hepatitis A Antibody IgM Non Reactive (Non React); Hepatitis B Core Antibody IgM Non Reactive (Non React); Hepatitis B Surface Antigen Non Reactive (Non React); Hepatitis C Antibody Non Reactive (Non React)
--- NOTE | 2024-11-22 19:50 | SUR.PHASEI ---
1950 Patient arrived to recovery resting comfortably in [facility], drowsy and talking with staff, breathig unlabored, vital signs stable, denies pain and nausea, report received from Kendy MAHARAJ
--- NOTE | 2024-11-22 20:46 | SUR.PHASEI ---
2044 Report given to Toya RN, awake and talking with staff, on oxygen 2L via nasal cannula in place, breathing unlabored, vital signs stable, denies pain and nausea 2045 Patient transported via gurney to room 371 without incident, patient awaiting for patient in room, Toya MAHARAJ promptly in patient room, patient sitting on the side of the bed with Toya at bedside when this insurance underwriter left patients room
[2024-11-22] MEDS: SERTRALINE HCL 25 MG TABLET 100 MG PO (22:07)
[2024-11-22] MEDS: NURTEC 75 MG SL (22:09)
[2024-11-23] VITALS: BP 105/62; PULSE 73; RESP 20; TEMP 37; O2SAT 95
[2024-11-23 04:00] VITALS: BP 113/67; PULSE 72; RESP 16; TEMP 36.9; O2SAT 95
[2024-11-23] MEDS: HYDROmorphone INJ 2 MG/ML VIAL 1 MG IVP ×2 (04:36→10:36)
[2024-11-23] MEDS: ONDANSETRON INJ 2 MG/ML INJ 2 ML 4 MG IVP ×2 (05:13→12:40)
[2024-11-23 06:20] LABS: Basophils # (Auto) 0.0 Thou/mm3 (0.0-0.2); Basophils % (Auto) 0 % (0-2.5); Eosinophils # (Auto) 0.2 Thou/mm3 (0.0-0.5); Eosinophils % (Auto) 3 % (0-10); Hematocrit 41.2 % (36.0-46.0); Hemoglobin 12.7 g/dL (12.0-16.0); Immature Granulocytes Auto 0.02 Thou/mm3 (0.00-0.00); Lymphocytes # (Auto) 2.7 Thou/mm3 (1.0-4.8); Lymphocytes % (Auto) 40 % (10-50); Mean Corpuscular HGB Conc 30.8 g/dl (31.0-37.0); Mean Corpuscular Hemoglobin 27.8 pg (25.0-35.0); Mean Corpuscular Volume 90 fL (80-100); Monocytes # (Auto) 0.5 Thou/mm3 (0.0-0.8); Monocytes % (Auto) 7 % (0-12); Neutrophils # (Auto) 3.3 Thou/mm3 (1.8-7.7); Neutrophils % (Auto) 48 % (37-80); Nucleated Red Blood Cell # 0.00 Thou/mm3 (0.00-0.00); Nucleated Red Blood Cell % 0 /100 WBC (0); Platelet Count 279 Thou/mm3 (140-440); RDW Standard Deviation 44.9 fL (36.4-46.3); Red Blood Count 4.57 Miln/mm3 (4.00-5.20); White Blood Count 6.8 Thou/mm3 (3.6-11.0)
[2024-11-23 06:42] LABS: Alanine Aminotransferase 52 U/L (10-49); Albumin, Serum 4.2 gm/dL (3.5-5.0); Albumin/Globulin Ratio 1.8 (1.2-2.2); Alkaline Phosphatase 82 U/L (46-116); Anion Gap 10 (7-16); Aspartate Amino Transferase 35 U/L (0-34); BUN/Creatinine Ratio 8 Ratio (12-20); Bilirubin,Total 0.2 mg/dL (0.3-1.2); Blood Urea Nitrogen 7 mg/dL (9-23); Calcium 9.3 mg/dL (8.3-10.6); Calcium (Corrected) 9.3 mg/dL (8.5-10.1); Carbon Dioxide 30.3 mMol/L (20.0-31.0); Chloride 103 mMol/L (98-107); Creatinine (Component) 0.9 mg/dL (0.6-1.3); Estimated Creatinine Clearance 111.6 mL/min (>60); Globulin 2.3 gm/dL (2.3-3.5); Glucose 79 mg/dL (74-106); Magnesium 1.8 mg/dL (1.6-2.6); Osmolality,Calculated 281 (275-295); Phosphorous 4.4 mg/dL (2.4-5.1); Potassium 4.2 mMol/L (3.4-5.1); Sodium 143 mMol/L (136-145); Total Protein 6.5 gm/dL (5.7-8.2); eGFR > 60 See Note
[2024-11-23 08:00] VITALS: BP 95/64; PULSE 89; RESP 16; TEMP 36.2; O2SAT 95
[2024-11-23 12:00] VITALS: BP 107/70; PULSE 77; RESP 16; TEMP 36.1; O2SAT 94
--- NOTE | 2024-11-23 13:41 | ESDS_ITS ---
<Statement entered by Roni Valadez MD - 11/23/24 14:46> Patient was examined and case was reviewed with team including attending physician. Note reviewed, I agree with most of its contents and agree with the patient's care as documented by Dr. Eddie Valadez MD PGY-2 Planned Discharge Date 11/23/24 DS: Providers Provider Date of admission: 11/21/24 12:23 Primary care physician: Javier Pino MD Admitting Provider: Og Bowers MD Attending Provider on Admission: Og Bowers MD Consults: 11/21/24 12:26 Consult to Gastroenterology Stat Comment: GI bleeding Consulting Provider: Soledad Zhu Attending Provider on DC: Og Bowers MD Discharging Provider: Melvin Morgan DO Anticipated date of discharge: 11/23/24 DS: Diagnosis Problem List Completed Was Problem List Reviewed/Reconciled?: Yes Hospital Course Hospital Course Hospital course: 44-year-old female with history of migraines and hypertension presented with 12 days of hematemesis, hematochezia, and intractable abdominal pain. Initial CT showed a 22 mm mesenteric soft tissue mass, and she was admitted for further GI evaluation. EGD on 11/21/24 revealed esophagitis, gastritis, and esophageal ulcers with no active bleeding source identified. Pantoprazole was started and pain managed initially with morphine, later switched to hydromorphone due to worsening migraines. 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 Biopsies were taken and are pending. GI recommended outpatient mesenteric angiography to evaluate possible mesenteric ischemia. During admission, the patient remained hemodynamically stable with no further episodes of hematemesis. Her hemoglobin remained stable. Transaminitis was mild and improved slightly during hospitalization. Workup for liver disease is pend ing. She tolerated the GoLytely prep and resumed a low-residue diet post- colonoscopy. She was clinically improved at the time of discharge with resolution of GI bleeding symptoms. Patient endorsed dysuria on the day of discharge. Urine culture at admission was negative and repeat urine culture was negative. Patient was prescribed antibiotics at discharge for presumed urinary tract infection. Patient is medically and physically stable for discharge. Diagnosis # Gastrointestinal bleeding # Hematemesis # Hematochezia # Intractable abdominal pain # Esophagitis with esophageal ulcers # Gastritis # Internal hemorrhoids # Mild transaminitis # Migraine headaches # Hypertension Discharge Plan: Follow up with primary care physician within 1 week of discharge Follow up with GI with regards to your esophageal and colonic ulcers You have been prescribed cephalexin for UTI please take this medication for a total of 7 days. Should your symptoms recur or worsen patient is instructed to return to the ED. Case discussed with my senior resident Dr. Ildefonso Valadez and with my attending Dr. Bowers. Melvin Morgan, DO Status at Discharge Overall status at discharge: patient is back to baseline Time Spent with Patient Time attestation: Total time spent providing and/or coordinating discharge services: Time spent: Greater than 30 minutes Exam Vital Signs Temp Pulse Resp BP Pulse Ox O2 Del Method O2 Flow Rate 97 F 77 16 107/70 94 L Room Air 3 11/23/24 12:00 11/23/24 12:11/23/24 12:11/23/24 12:11/23/24 12:11/23/24 12:11/22/24 19:45 Narrative Exam Physical Exam General: Awake and in no acute distress. Conversational and non-toxic appearing. HEENT: Normocephalic, atraumatic, mucous membranes moist. Heart: Regular rate and rhythm, no murmurs. Lungs: Clear to auscultation with no wheezing or crackles. Abdomen: Soft, nondistended, tender to superficial palpation in lower abdomen. No guarding or rebound tenderness. Neurologic: Alert and oriented x3, no gross neurological deficit, and patient able to move all 4 extremities. Extremities: No edema. Skin: No rash or ecchymoses. Discharge Plan Plan Patient Disposition: HOME (Self Care) Care Plan Goals: Follow up with primary care physician within 1 week of discharge Follow up with GI with regards to your esophageal and colonic ulcers You have been prescribed cephalexin for UTI please take this medication for a total of 7 days. Should your symptoms recur or worsen patient is instructed to return to the ED. Prescriptions/Referrals Prescriptions/Med Rec: New cephalexin 500 mg capsule 500 mg PO BID 7 Days Qty: 14 0RF omeprazole 40 mg capsule,delayed release(DR/EC) 40 mg PO QDAY Qty: 30 0RF Continued Nurtec ODT 75 mg tablet,disintegrating 75 mg PO QDAY PRN (Reason: migraine headache) sertraline [Zoloft] 100 mg tablet 100 mg PO HS lisinopril-hydrochlorothiazide 10-12.5 mg tablet 2 tab PO HS clonazepam 1 mg tablet 2 mg PO Q12H Patient Comments: TAKE 1 TABLET BY MOUTH THREE TIMES DAILY zolpidem 12.5 mg tablet,ext release multiphase 12.5 mg PO HS Patient Comments: TAKE 1 TABLET BY MOUTH EVERY DAY AT BEDTIME Referrals: Javier Pino MD [Primary Care Provider] - Patient/Caregiver Discharge Instructions Education Materials: Esophageal Ulcer Print Language: Uruguayan Stand Alone Forms: Tarah Award Info., Patient Portal Info Letter Discharge Order Discharge Orders: Discharge (Routine); Ordered 11/23/24 Ordered By: Roni Valadez Quality Discharge Quality Measures none MD Attestestation MD Attestation I have examined the patient, reviewed labs and imaging findings, discussed the case with the resident(s), and reviewed entered orders. I agree with the plan of care as outlined in this note. Time Spent [address] Elissa MD
[2024-11-23 14:01] LABS: Collection Type, Urine Clean Catch
[2024-11-23 14:16] LABS: Bilirubin,Urine Negative (Negative); Blood,Urine Negative (Negative); Clarity,Urine Clear (Clear/Hazy); Color,Urine Yellow (Lt Yel-Yel); Glucose, Urine Negative (Negative); Ketones,Urine Negative (Negative); Leukocyte Esterase,Urine Negative (Negative); Nitrite,Urine Negative (Negative); PH,Urine 5.5 (5.0-7.0); Protein,Urine Negative (Neg - Trace); RBC,Urine 1 /hpf (0-3); Specific Gravity,Urine 1.020 (1.001-1.035); Squamous Epithelial Cell,Urine < 1 /hpf (0-5); Urobilinogen,Urine Negative mg/dL (0.0-1.0); WBC,Urine 1 /hpf (0-5)
--- NOTE | 2024-11-23 20:57 | PD.IMPROG ---
Documentation for date of: 11/23/24 Subjective Subjective Interval history: Late entry for the note Case discussed with the internal medicine team Okay to discharge the patient home on omeprazole to be followed by me next week in the office Exam Vital Signs Temp Pulse Resp BP Pulse Ox O2 Del Method O2 Flow Rate 97 F 77 16 107/70 94 L Room Air 3 11/23/24 12:00 11/23/24 12:00 11/23/24 12:00 11/23/24 12:00 11/23/24 12:00 11/23/24 12:00 11/22/24 19:45 Objective Labs 11/23/24 05:00 11/23/24 05:00 Labs: Laboratory Results - last 24 hr 11/23/24 11/23/24 05:00 12:35 WBC 6.8 RBC 4.57 Hgb 12.7 Hct 41.2 MCV 90 MCH 27.8 MCHC 30.8 L RDW Std Deviation 44.9 Plt Count 279 D Neut % (Auto) 48 Lymph % (Auto) 40 Bremer % (Auto) 7 Eos % (Auto) 3 Baso % (Auto) 0 Neut # (Auto) 3.3 Lymph # (Auto) 2.7 Bremer # (Auto) 0.5 Eos # (Auto) 0.2 Baso # (Auto) 0.0 Immature Gran # (Auto) 0.02 H Absolute Nucleated RBC 0.00 Immature Gran % 0 Nucleated RBC % 0 Sodium 143 Potassium 4.2 Chloride 103 Carbon Dioxide 30.3 Anion Gap 10 BUN 7 L Creatinine 0.9 Estim Creat Clear Calc 111.6 eGFR > 60 BUN/Creatinine Ratio 8 L Glucose 79 Calculated Osmolality 281 Calcium 9.3 Corrected Calcium 9.3 Phosphorus 4.4 Magnesium 1.8 Total Bilirubin 0.2 L AST 35 H ALT 52 H Alkaline Phosphatase 82 Total Protein 6.5 Albumin 4.2 Globulin 2.3 Albumin/Globulin Ratio 1.8 Ur Collection Type Clean Catch Urine Color Yellow Urine Clarity Clear Urine pH 5.5 Ur Specific [place] 1.020 Urine Protein Negative Urine Glucose (UA) Negative Urine Ketones Negative Urine Blood Negative Urine Nitrite Negative Urine Bilirubin Negative Urine Urobilinogen (Auto) Negative Ur Leukocyte Esterase Negative Urine RBC 1 Urine WBC 1 Ur Squamous Epith Cells < 1 Urine Bacteria None Impressions Impression: Esophageal ulceration Multifactorial abdominal pain Okay to discharge patient home on omeprazole to be followed by me in outpatient in 1 week Assessment & Plan A&P Narrative # Nausea vomiting # Hematemesis # Hematochezia # Abnormal CT scan of the abdomen pelvis Plan Consent obtained for fiberoptic esophagogastroduodenoscopy with possible biopsy possible therapeutic intervention under intravenous moderate sedation n.p.o. IV Protonix Effective pain control if the EGD is negative we will consider doing a fiberoptic colonoscopy after GoLytely prep provided the patient can tolerate GoLytely Thank you again for the opportunity to participate in the care of this patient Other medical problems include Migraine headaches Anxiety neurosis 22 mm mass in the anterior mesentery will follow with the imaging studies as well as will discuss the case with the IR to see if this can be biopsied Time Spent With Patient Time: Total time spent is greater than 50% in coordination of care (as documented) at patient's floor/unit and/or counseling patient:
[2024-11-27 14:36] LABS: Prolactin* 3.2 ng/mL
[2024-11-29 06:19] LABS: ANA Screen, IFA NEGATIVE (NEGATIVE); Actin Antibody (IgG)* <20 U; Alpha-1-Antitrypsin* 136 mg/dL (83-199); Ceruloplasmin* 34 mg/dL (14-48); Copper* 143 mcg/dL (70-175); Mitochondrial Ab NEGATIVE (NEGATIVE)
== END 2024-11-23 13:06 | disposition home or self-care (01) | DRG 348 ==
LOC: SERX 12:33 → SERHOLD 12:57 → S3SX 21:13
PROVIDERS: Physician Assistant; Specialist; Student in an Organized Health Care Education/Training Program; Admitting Provider Student in an Organized Health Care Education/Training Program; Emergency Provider Emergency Medicine; PCP Internal Medicine Pulmonary Disease; Visit Provider Student in an Organized Health Care Education/Training Program
PROC: (CPT 43239; principal; 2024-11-21 18:30)
PROC: 0DJD8ZZ Inspection of Lower Intestinal Tract, Via Natural or Artificial Opening Endoscopic (ICD-10-PCS; CPT 45378; principal; 2024-11-22 15:30)
DX: K22.11 Ulcer of esophagus with bleeding (principal); N39.0 Urinary tract infection, site not specified; K52.9 Noninfective gastroenteritis and colitis, unspecified; K29.71 Gastritis, unspecified, with bleeding; I10 Essential (primary) hypertension; G43.909 Migraine, unspecified, not intractable, without status migrainosus; F41.1 Generalized anxiety disorder; K44.9 Diaphragmatic hernia without obstruction or gangrene; Z88.5 Allergy status to narcotic agent; Z88.8 Allergy status to other drugs, medicaments and biological substances; G47.00 Insomnia, unspecified; R61 Generalized hyperhidrosis; K64.8 Other hemorrhoids; R74.01 Elevation of levels of liver transaminase levels
CPT/HCPCS: 36415; 74176; 80053; 80061; 80074; 80307; 81001; 81025; 82103; 82105; 82390; 82525; 83540; 83550; 83605; 83615; 83690; 83735; 84100; 84146; 84443; 84703; 85025; 85610; 85652; 85730; 86015; 86038; 86255; 86850; 86900; 86901; 96374; 96375; 96376; 99284; A4649; J1171; J1200; J2175; J2250; J2270; J2405; J2470; J3010; A9270

== ENCOUNTER 2024-12-08 13:30 | Emergency (ER) | payer BC, SELFPAY ==
[2024-12-08 13:31] VITALS: BMI 38.4
[2024-12-08 14:24] VITALS: BP 121/79; PULSE 106; RESP 20; TEMP 37.1; O2SAT 97
--- NOTE | 2024-12-08 14:50 | PD.EDRME ---
Rapid Medical Screening Exam RME Arrival date/time: 12/08/24 13:30 Chief Complaint: GI Bleed Vital signs: Vital Signs Temperature 98.7 F 12/08/24 14:24 Pulse Rate 106 H 12/08/24 14:24 Respiratory Rate 20 12/08/24 14:24 Blood Pressure 121/79 12/08/24 14:24 Pulse Oximetry (%) 97 12/08/24 14:24 Oxygen Delivery Method Room Air 12/08/24 14:24 RME Narrative: Patient is a 44-year-old female is in the emerged for concerns for abdominal pain, hematemesis as well as bright red blood per rectum. Per the patient she recently had an endoscopy and a colonoscopy was hospitalized because of bleeding from her upper and lower GI tract. Was found to have ulcers in her stomach as well as bleeding hemorrhoids. Her hemorrhoids were clipped. No interventions per the patient were performed on her ulcers. Patient was discharged home with [facility] to get a CT scan done with contrast as an outpatient for Dr. Zhu her photography coordinator however the CT scan has not been authorized yet, patient has persistent pain is worsening, continues to vomit blood and provide blood. Denies fevers, chest pain. Does endorse dysuria and right flank pain.
[2024-12-08 15:24] LABS: Basophils # (Auto) 0.1 Thou/mm3 (0.0-0.2); Basophils % (Auto) 1 % (0-2.5); Eosinophils # (Auto) 0.2 Thou/mm3 (0.0-0.5); Eosinophils % (Auto) 2 % (0-10); Hematocrit 40.9 % (36.0-46.0); Hemoglobin 13.1 g/dL (12.0-16.0); Immature Granulocytes Auto 0.02 Thou/mm3 (0.00-0.00); Lymphocytes # (Auto) 4.0 Thou/mm3 (1.0-4.8); Lymphocytes % (Auto) 37 % (10-50); Mean Corpuscular HGB Conc 32.0 g/dl (31.0-37.0); Mean Corpuscular Hemoglobin 27.8 pg (25.0-35.0); Mean Corpuscular Volume 87 fL (80-100); Monocytes # (Auto) 1.1 Thou/mm3 (0.0-0.8); Monocytes % (Auto) 10 % (0-12); Neutrophils # (Auto) 5.5 Thou/mm3 (1.8-7.7); Neutrophils % (Auto) 51 % (37-80); Nucleated Red Blood Cell # 0.00 Thou/mm3 (0.00-0.00); Nucleated Red Blood Cell % 0 /100 WBC (0); Platelet Count 359 Thou/mm3 (140-440); RDW Standard Deviation 46.4 fL (36.4-46.3); Red Blood Count 4.72 Miln/mm3 (4.00-5.20); White Blood Count 10.8 Thou/mm3 (3.6-11.0)
[2024-12-08 15:42] LABS: INR 1.1 (0.9-1.3); Prothrombin Time 11.5 Seconds (9.0-12.2)
[2024-12-08 15:46] LABS: HCG,Qualitative Serum Negative
[2024-12-08 15:46] LABS: Collection Type, Urine Clean Catch
[2024-12-08 15:47] LABS: Alanine Aminotransferase 33 U/L (10-49); Albumin, Serum 4.9 gm/dL (3.5-5.0); Albumin/Globulin Ratio 1.6 (1.2-2.2); Alkaline Phosphatase 80 U/L (46-116); Anion Gap 12 (7-16); Aspartate Amino Transferase 22 U/L (0-34); BUN/Creatinine Ratio 9 Ratio (12-20); Bilirubin,Total 0.5 mg/dL (0.3-1.2); Blood Urea Nitrogen 19 mg/dL (9-23); Calcium 11.0 mg/dL (8.3-10.6); Calcium (Corrected) 11.0 mg/dL (8.5-10.1); Carbon Dioxide 26.1 mMol/L (20.0-31.0); Chloride 99 mMol/L (98-107); Creatinine (Component) 2.2 mg/dL (0.6-1.3); Estimated Creatinine Clearance 45.7 mL/min (>60); Globulin 3.0 gm/dL (2.3-3.5); Glucose 97 mg/dL (74-106); Lipase 32 U/L (12-53); Osmolality,Calculated 276 (275-295); Potassium 4.3 mMol/L (3.4-5.1); Sodium 137 mMol/L (136-145); Total Protein 7.9 gm/dL (5.7-8.2); eGFR 28 See Note
[2024-12-08 16:12] LABS: Bacteria,Urine Rare; Bilirubin,Urine Negative (Negative); Blood,Urine Negative (Negative); Color,Urine Yellow (Lt Yel-Yel); Culture Indicated,Urine Not Indicated; Glucose, Urine Negative (Negative); Hyaline Casts,Urine 4 /hpf (0-1); Ketones,Urine Negative (Negative); Leukocyte Esterase,Urine Negative (Negative); Nitrite,Urine Negative (Negative); PH,Urine 5.5 (5.0-7.0); Protein,Urine 1+ (Neg - Trace); RBC,Urine 7 /hpf (0-3); Specific Gravity,Urine 1.034 (1.001-1.035); Squamous Epithelial Cell,Urine 28 /hpf (0-5); Urobilinogen,Urine Negative mg/dL (0.0-1.0); WBC,Urine 9 /hpf (0-5)
[2024-12-08 16:14] LABS: Clarity,Urine Hazy (Clear/Hazy)
[2024-12-08] MEDS: [UNRECOGNIZED DRUG - OTHER] 15 MG PO (18:41)
[2024-12-08] MEDS: ONDANSETRON ODT 4 MG TABRAP PO (18:41)
--- NOTE | 2024-12-08 19:24 | XR_ITS ---
Examination: CT abdomen and pelvis without contrast. Coronal 3-D reconstructions. Sagittal 2-D reconstructions. Date and time of exam:December 08, 1933 hours, comparison November 21, 2024 INDICATIONS: Generalized abdominal pain today CTDI: vol (mGy): 14.2. DLP: (mGycm): 962. Technique: Axial images of the abdomen have been obtained, 3 mm slice thickness Intravenous contrast material has not been administered. Low dose protocols were performed. One or more of the following dose reduction techniques were used; automated exposure control, adjustment of the mA and/or KV according to patient size, use of iterative reconstruction technique. Findings: No focal liver or splenic lesions. No gallstones. No pancreatic or adrenal mass. No renal or ureteral calculi. Aorta normal size. No pericecal inflammatory change Stable 22 mm calcified mass in the left mesentery, image 104 No pericecal inflammatory change No diverticulitis No bladder mass or bladder calculi Mild osteopenia IMPRESSION: No renal or ureteral calculi, no hydronephrosis No CT findings of appendicitis bowel obstruction or diverticulitis Again noted 22 mm calcified mass in the anterior mesentery, clinical correlation advised
[2024-12-08] MEDS: RINGERS LACTATED 1000 ML 1,000 ML 999 ML IV ×2 (20:05→21:56)
[2024-12-08 20:43] VITALS: BP 123/81; PULSE 86; RESP 20; TEMP 37.1; O2SAT 99
--- NOTE | 2024-12-08 21:10 | PD.EDGIBLD ---
ED GI Bleed RME/HPI General Chief complaint: GI Bleed Stated complaint: VOMITING BLOOD x 3 DAYS, SENT BY DR. TIDWELL Time Seen by Provider: 12/08/24 16:01 Arrival date/time: 12/08/24 13:30 Limitations: no limitations RME / HPI RME / HPI Narrative: Patient is a 44-year-old female is in the emerged for concerns for abdominal pain, hematemesis as well as bright red blood per rectum. Per the patient she recently had an endoscopy and a colonoscopy was hospitalized because of bleeding from her upper and lower GI tract. Was found to have ulcers in her stomach as well as bleeding hemorrhoids. Her hemorrhoids were clipped. No interventions per the patient were performed on her ulcers. [facility] scan done with contrast as an outpatient for Dr. Tidwell her university administrator however the CT scan has not been authorized yet, patient has persistent pain is worsening, continues to vomit blood and provide blood. Denies fevers, chest pain. Does endorse dysuria and right flank pain. She states she contacted Dr. Tdiwell's office and was routed here today for further evaluation. Related Data Home Medications ?Medication ?Instructions ?Recorded ?Confirmed clonazepam 1 mg tablet 2 mg PO Q12H 11/21/24 11/21/24 lisinopril 10 2 tab PO HS 11/21/24 11/21/24 mg-hydrochlorothiazide 12.5 mg tablet rimegepant 75 mg disintegrating 75 mg PO QDAY PRN migraine headache 11/21/24 11/21/24 tablet (Nurtec ODT) sertraline 100 mg tablet (Zoloft) 100 mg PO HS 11/21/24 11/21/24 zolpidem 12.5 mg tablet,extended 12.5 mg PO HS 11/23/24 11/23/24 release,multiphase Previous Rx's ?Medication ?Instructions ?Recorded omeprazole 40 mg capsule,delayed 40 mg PO QDAY #30 caps 11/23/24 release ondansetron HCl 4 mg tablet 4 mg PO Q8H PRN nausea and 12/08/24 vomiting 5 days #14 tabs Allergies Allergy/AdvReac Type Severity Reaction Status Date / Time hydrocodone (From Vicodin) Allergy Severe ITCHY Verified 12/08/24 13:33 metoclopramide (From Reglan) Allergy Severe Anxiety Verified 12/08/24 13:33 Review of Systems Review of Systems Systems Reviewed: All systems reviewed, normal except as documented ED Exam General Limitations: Present no limitations General appearance: Present alert and anxious Head Head exam: Present atraumatic Eye Eye exam: Present normal appearance, PERRL and EOMI ENT ENT exam: Present normal exam, normal oropharynx and mucous membranes moist Neck Neck exam: Present normal inspection, full ROM and trachea midline Chest Chest inspection: Present normal inspection and symmetric chest wall rise Respiratory Respiratory exam: Present normal lung sounds bilaterally Cardiovascular Cardiovascular exam: Present regular rate, normal rhythm and normal heart sounds Abdominal Exam Abdominal exam: Present soft; Absent distention or tenderness Rectal Exam Rectal exam: Present normal inspection, normal rectal tone, heme (-) stool and other (Exam performed with a female lGadys MENG ) Extremities Exam Extremities exam: Present normal inspection and full ROM Back Exam Back exam: Present normal inspection and full ROM Neurological Exam Neurological exam: Present alert, oriented X3 and CN II-XII intact Psychiatric Psychiatric exam: Present normal affect and normal mood Skin Skin exam: Present warm, dry, intact and normal color Course Quality Measures none Orders Category Date Time Status CT Screening NOW Care 12/08/24 14:49 Completed Occult Blood,Stool (Nursing) ONCE Care 12/08/24 20:[address] abdomen pelvis wo con Stat Exams 12/08/24 19:24 Completed CBC Stat Lab 12/08/24 15:12 Completed CMP [Comprehensive Metabolic Panel] Stat Lab 12/08/24 15:12 Completed CMP [Comprehensive Metabolic Panel] Stat Lab 12/08/24 20:57 Completed HCG,Qualitative Serum Stat Lab 12/08/24 15:12 Completed Lipase Stat Lab 12/08/24 15:12 Completed PT [Prothrombin Time with INR] Stat Lab 12/08/24 15:12 Completed Type and Screen Stat Lab 12/08/24 15:12 Completed UA, C/S IF [Urinalysis, C/S if Indicated] Stat Lab 12/08/24 15:30 Completed HYDROmorphone INJ [Dilaudid Inj] Med 12/08/24 21:26 Discontinued 1 mg IVP X1 ONE Morphine Oral IR [Ms-IR] Med 12/08/24 18:45 Discontinued 15 mg PO X1 ONE Ondansetron Inj [Zofran Inj] Med 12/08/24 21:26 Discontinued 4 mg IVP X1 ONE Ondansetron Odt [Zofran Odt] Med 12/08/24 14:48 Discontinued 4 mg PO X1 ONE Ringers Lactated 1000 ml [Lactated Ringers] 1,000 ml Med 12/08/24 16:45 Discontinued IV 999 mls/hr Ringers Lactated 1000 ml [Lactated Ringers] 1,000 ml Med 12/08/24 21:07 Discontinued IV 999 mls/hr Vital Signs Vital signs: Vital Signs Temperature 98.7 F 12/08/24 14:24 Pulse Rate 106 H 12/08/24 14:24 Respiratory Rate 20 12/08/24 14:24 Blood Pressure 121/79 12/08/24 14:24 Pulse Oximetry (%) 97 12/08/24 14:24 Oxygen Delivery Method Room Air 12/08/24 14:24 GI Bleed MDM Narrative MDM Narrative:: Patient is a 44-year-old female is in the emerged for concerns for abdominal pain, hematemesis as well as bright red blood per rectum. Per the patient she recently had an endoscopy and a colonoscopy was hospitalized because of bleeding from her upper and lower GI tract. Was found to have ulcers in her stomach as well as bleeding hemorrhoids. Her hemorrhoids were clipped. No interventions per the patient were performed on her ulcers. Patient was discharged home with [facility] to get a CT scan done with contrast as an outpatient for Dr. Tidwell her university administrator however the CT scan has not been authorized yet, patient has persistent pain is worsening, continues to vomit blood and provide blood. Denies fevers, chest pain. Does endorse dysuria and right flank pain. She states she contacted Dr. Tidwell's office and was routed here today for further evaluation. On exam, patient is nontoxic-appearing. She is anxious appearing. Her vital signs are stable. She vocalizes frustration with the processes that she has been enduring for the last several weeks. She states she received a dose of morphine today and that has not helped with her pain. Workup reveals no leukocytosis or anemia. Metabolic panel is significant for an MAX at 2.2, this is new. Her liver enzymes are unremarkable. Urinalysis is significant for likely contaminated sample. Patient received a bolus of lactated Ringer's, 1 L, prior to my visit with her. She also received [address] Tidwell of gastroenterology was contacted. Case discussed. We believe the patient can be discharged from the ER at this time for outpatient follow-up. Patient received an additional dose of lactated Ringer's here and we will assist with pain management with a one-time dose of Dilaudid. Patient will be discharged in the ER afterwards. Patient to follow-up with Dr. Tidwell on Wednesday and Wednesday of last week. This was discussed with the patient. She verbalized understanding and agreement, to the plan. Patient data External records reviewed:: None Clinical information provided by:: patient Social determinants that could affect healthcare access:: none Patient has the following chronic illnesses:: Hypertension How is presenting disease/condition affected by chronic disease/condition?: exacerbated by Evaluation data The following diagnostics were reviewed and interpreted by me:: lab results (CBC is unremarkable. CMP is significant for MAX with a creatinine of 2.2 otherwise unremarkable.) and radiology exam(s) (CT abdomen pelvis reveals a Stable 22 mm calcified mass in the left mesentery, otherwise unremarkable.) Lab and/or radiology exams considered but not ordered:: n/a Interpretation Summary: max Medications / Prescriptions Medications or Prescriptions considered but not ordered:: n/a Medication administrations:: Medication Administration History Discontinued Medications Hydromorphone HCl (Hydromorphone Inj 2 Mg/Ml Vial) 1 mg IVP X1 ONE Stop: 12/08/24 21:27 Last Admin: 12/08/24 21:55 Dose: 1 mg Documented By: JESI Lactated Ringer's (Lactated Ringers) 1,000 mls @ 999 mls/hr IV .Q1H1M ONE Stop: 12/08/24 17:45 Last Infusion: 12/08/24 20:48 Dose: Infused Documented By: Admin: 12/08/24 20:05 Dose: 999 mls/hr Documented By: Lactated Ringer's (Lactated Ringers) 1,000 mls @ 999 mls/hr IV .Q1H1M ONE Stop: 12/08/24 22:07 Last Infusion: 12/08/24 22:44 Dose: Infused Documented By: Admin: 12/08/24 21:56 Dose: 999 mls/hr Documented By: JESI Morphine Sulfate (Morphine Sulf Immed Release 30 Mg Tabir) 15 mg PO X1 ONE; Protocol Stop: 12/08/24 18:46 Last Admin: 12/08/24 18:41 Dose: 15 mg Documented By: Ondansetron HCl (Ondansetron Odt 4 Mg Tabrap) 4 mg PO X1 ONE; Protocol Stop: 12/08/24 14:49 Last Admin: 12/08/24 18:41 Dose: 4 mg Documented By: Ondansetron HCl (Ondansetron Inj 2 Mg/Ml Inj 2 Ml) 4 mg IVP X1 ONE; Protocol Stop: 12/08/24 21:27 Last Admin: 12/08/24 21:55 Dose: 4 mg Documented By: CB See above Consultations Consultation(s) initiated? (list below): No Diagnosis GI bleed differential diagnosis: hemorrhoids, gastritis, Yissel-Andrea syndrome, Upper gastrointestinal hemorrhage, Lower gastrointestinal hemorrhage and hematochezia Most likely diagnosis given after review of the tests above:: GI bleed Admission Indicated Admission indicated?: not indicated Admission Request Was there a request for admission?: No Disposition Plan Disposition Plan: Discharge Discharge Attestation Discharge Attestation: The patient and all family members were given an opportunity to ask questions and understood the discharge instructions. Discharge instructions specifically effects, indications for sooner follow up or return to the emergency department, and the expected course of current diagnosis. Patient condition: Stable Discharge Plan Plan Patient Disposition: HOME (Self Care) Patient condition on transfer: Stable Prescriptions/Referrals Prescriptions/Med Rec: New ondansetron HCl 4 mg tablet 4 mg PO Q8H PRN (Reason: nausea and vomiting) 5 Days Qty: 14 0RF No Action Nurtec ODT 75 mg tablet,disintegrating 75 mg PO QDAY PRN (Reason: migraine headache) sertraline [Zoloft] 100 mg tablet 100 mg PO HS lisinopril-hydrochlorothiazide 10-12.5 mg tablet 2 tab PO HS clonazepam 1 mg tablet 2 mg PO Q12H Patient Comments: TAKE 1 TABLET BY MOUTH THREE TIMES DAILY zolpidem 12.5 mg tablet,ext release multiphase 12.5 mg PO HS Patient Comments: TAKE 1 TABLET BY MOUTH EVERY DAY AT BEDTIME omeprazole 40 mg capsule,delayed release(DR/EC) 40 mg PO QDAY Qty: 30 0RF Referrals: No Primary/Family,Physician [Primary Care Provider] - In 1 week Problem List Clinical Impression: Abdominal pain Patient/Caregiver Discharge Instructions Education Materials: Abdominal Pain Additional Instructions: - Continue current medications. -Use provided medication as needed for your nausea and vomiting. - Follow-up with Dr. Tidwell on Wednesday or Wednesday of next week for close follow-up appointment. - Return to the emergency room at anytime for any worsening or emergent changes. Print Language: Cuban Stand Alone Forms: Tarah Award Info., Patient Portal Info Letter
[2024-12-08] MEDS: ONDANSETRON INJ 2 MG/ML INJ 2 ML 4 MG IVP (21:55)
[2024-12-08] MEDS: HYDROmorphone INJ 2 MG/ML VIAL 1 MG IVP (21:55)
[2024-12-08 21:58] LABS: Alanine Aminotransferase 28 U/L (10-49); Albumin, Serum 4.8 gm/dL (3.5-5.0); Albumin/Globulin Ratio 1.8 (1.2-2.2); Alkaline Phosphatase 74 U/L (46-116); Anion Gap 11 (7-16); Aspartate Amino Transferase 17 U/L (0-34); BUN/Creatinine Ratio 13 Ratio (12-20); Bilirubin,Total 0.5 mg/dL (0.3-1.2); Blood Urea Nitrogen 20 mg/dL (9-23); Calcium 10.6 mg/dL (8.3-10.6); Calcium (Corrected) 10.6 mg/dL (8.5-10.1); Carbon Dioxide 26.0 mMol/L (20.0-31.0); Chloride 100 mMol/L (98-107); Creatinine (Component) 1.6 mg/dL (0.6-1.3); Estimated Creatinine Clearance 62.8 mL/min (>60); Globulin 2.7 gm/dL (2.3-3.5); Glucose 92 mg/dL (74-106); Osmolality,Calculated 276 (275-295); Potassium 3.6 mMol/L (3.4-5.1); Sodium 137 mMol/L (136-145); Total Protein 7.5 gm/dL (5.7-8.2); eGFR 41 See Note
== END 2024-12-08 22:45 | disposition home or self-care (01) ==
PROVIDERS: Emergency Medicine; Emergency Provider Emergency Medicine
DX: R10.9 Unspecified abdominal pain (principal); K64.9 Unspecified hemorrhoids; K92.0 Hematemesis; I10 Essential (primary) hypertension
CPT/HCPCS: 36415; 74176; 80053; 81001; 83690; 84703; 85025; 85610; 86850; 86900; 86901; 96361; 96374; 96375; 99283; J1171; J2405; J7120; Q0162; A9270

== ENCOUNTER → 2024-12-12 | Outpatient (CLI) | payer BC, SELFPAY ==
[2024-12-12 13:10] LABS: Basophils # (Auto) 0.1 Thou/mm3 (0.0-0.2); Basophils % (Auto) 1 % (0-2.5); Eosinophils # (Auto) 0.2 Thou/mm3 (0.0-0.5); Eosinophils % (Auto) 2 % (0-10); Hematocrit 37.9 % (36.0-46.0); Hemoglobin 12.1 g/dL (12.0-16.0); Immature Granulocytes Auto 0.02 Thou/mm3 (0.00-0.00); Lymphocytes # (Auto) 3.4 Thou/mm3 (1.0-4.8); Lymphocytes % (Auto) 34 % (10-50); Mean Corpuscular HGB Conc 31.9 g/dl (31.0-37.0); Mean Corpuscular Hemoglobin 28.0 pg (25.0-35.0); Mean Corpuscular Volume 88 fL (80-100); Monocytes # (Auto) 0.8 Thou/mm3 (0.0-0.8); Monocytes % (Auto) 7 % (0-12); Neutrophils # (Auto) 5.7 Thou/mm3 (1.8-7.7); Neutrophils % (Auto) 56 % (37-80); Nucleated Red Blood Cell # 0.00 Thou/mm3 (0.00-0.00); Nucleated Red Blood Cell % 0 /100 WBC (0); Platelet Count 279 Thou/mm3 (140-440); RDW Standard Deviation 46.7 fL (36.4-46.3); Red Blood Count 4.32 Miln/mm3 (4.00-5.20); White Blood Count 10.2 Thou/mm3 (3.6-11.0)
[2024-12-12 13:48] LABS: Alanine Aminotransferase 24 U/L (10-49); Albumin, Serum 4.6 gm/dL (3.5-5.0); Albumin/Globulin Ratio 2.2 (1.2-2.2); Alkaline Phosphatase 69 U/L (46-116); Anion Gap 9 (7-16); Aspartate Amino Transferase 18 U/L (0-34); BUN/Creatinine Ratio 10 Ratio (12-20); Bilirubin,Total < 0.2 mg/dL (0.3-1.2); Blood Urea Nitrogen 9 mg/dL (9-23); Calcium 10.6 mg/dL (8.3-10.6); Calcium (Corrected) 10.6 mg/dL (8.5-10.1); Carbon Dioxide 28.3 mMol/L (20.0-31.0); Chloride 104 mMol/L (98-107); Creatinine (Component) 0.9 mg/dL (0.6-1.3); Globulin 2.1 gm/dL (2.3-3.5); Glucose 84 mg/dL (74-106); Osmolality,Calculated 278 (275-295); Potassium 4.1 mMol/L (3.4-5.1); Sodium 141 mMol/L (136-145); Total Protein 6.7 gm/dL (5.7-8.2); eGFR > 60 See Note
== END | disposition home or self-care (01) ==
PROVIDERS: PCP Internal Medicine Pulmonary Disease; Referring Provider Specialist; Visit Provider Specialist
DX: E78.9 Disorder of lipoprotein metabolism, unspecified (principal)
CPT/HCPCS: 36415; 80053; 85025

== ENCOUNTER 2025-01-18 11:10 | Emergency (ER) | payer BC, SELFPAY ==
[2025-01-18 11:26] VITALS: BP 122/85; PULSE 78; RESP 17; TEMP 36.8; O2SAT 98; BMI 38.4
--- NOTE | 2025-01-18 11:39 | XR_ITS ---
Examination: CT abdomen with intravenous contrast CT pelvis with intravenous contrast 2-D coronal reconstructions 2-D sagittal reconstructions Date and time of exam:January 18, 2025, 1427 hours, comparison December 08, 2024 INDICATIONS: Vomiting blood in the stools one month, history of ulcer disease. CTDI: vol (mGy) 15.1 DLP: (mGycm) 1010 Technique: Multiple axial sections of the abdomen and pelvis have been obtained. 64 slice high-resolution scanner used. 3 mm axial sections have been obtained, post intravenous injection 60 cc [id number] 2-D sagittal, coronal reconstructions obtained. Low dose protocols were performed. One or more of the following dose reduction techniques were used; automated exposure control, adjustment of the mA and/or KV according to patient size, use of iterative reconstruction technique. Findings: No focal liver or splenic lesions No gallstones No pancreatic or adrenal mass No renal or ureteral calculi, no hydronephrosis Aorta normal size No pericecal inflammatory change No bowel obstruction Urinary bladder intact No pelvic mass Stable calcified mesenteric mass, 22 mm Prominent osteopenia No nonspecific colitis or enteritis pattern Rectal wall does not appear thickened IMPRESSION: Stable calcified mesenteric mass, 22 mm No renal or ureteral calculi, no hydronephrosis No bowel obstruction No CT findings of colitis or enteritis
--- NOTE | 2025-01-18 11:41 | EDNOTE_ITS ---
ED Abdominal Pain RME/HPI General Chief Complaint: Nausea/Vomiting/Diarrhea Stated complaint: VOMITING AND POOPING BLOOD Time seen by provider: 01/18/25 11:27 Arrival date/time: 01/18/25 11:10 RME / HPI RME / HPI narrative: 44-year-old female patient with significant history of peptic ulcer disease, came in for evaluation of vomiting blood and blood in the stool. Onset of symptoms earlier this week was vomiting blood and blood in the stool, associated with abdominal pain described as dull ache, severity moderate. Patient had colonoscopy a month ago and was advised that she had ulcer in the stomach. Patient is supposed to go to [facility]. For further management. Went to the clinic of Dr. Zhu, and was advised to come to the emergency room for further management. She is not taking any blood thinner. She is not an alcoholic. Patient also complaining of worsening migraine headache, despite taking Nurtec. Related Data Home Medications ?Medication ?Instructions ?Recorded ?Confirmed clonazepam 1 mg tablet 2 mg PO Q12H 11/21/24 lisinopril 10 2 tab PO HS 11/21/24 5 mg-hydrochlorothiazide 12.5 mg tablet rimegepant 75 mg disintegrating 75 mg PO QDAY PRN migr montrell headache 11/21/24 11/21/24 tablet (Nurtec ODT) sertraline 100 mg tablet (Zoloft) 100 mg PO HS 5 11/21/24 zolpidem 12.5 mg tablet,extended 12.5 mg PO HS 5 11/23/24 release,multiphase Previous Rx's ?Medication ?Instructions ?Recorded omeprazole 40 mg capsule,delayed 40 mg PO QDAY #30 cap s 11/23/24 release dicyclomine 20 mg tablet 20 mg PO QID PRN abdominal p ain 01/18/25 #30 tabs pantoprazole 40 mg tablet,delayed 40 mg PO BID #20 tab s 01/18/25 release (Protonix) Allergies Allergy/AdvReac Type Severity Reaction Status Date / Time hydrocodone (From Vicodin) Allergy Severe ITCHY Verified 01/18/25 11:12 metoclopramide (From Reglan) Allergy Severe Anxiety Verified 01/18/25 11:12 Review of Systems Review of Systems Narrative Review of Systems: Review of system reviewed and within normal limits except mentioned in HPI ED Exam Narrative Physical exam: VITAL SIGNS: Reviewed. GENERAL APPEARANCE: Alert and interactive, follows commands, no acute distress, HEAD AND FACE: Non-traumatic. ENT: PERRL, pink conjunctivitis, eyelid no trauma, Mucous membrane moist. NECK: Supple, nontender, no nuchal rigidity. CHEST: No tenderness, no crepitus, no paradoxical movement, no retractions. LUNGS: Clear, well ventilated, symmetric, no rales, no wheezing, no ronchi, no stridor, good breath sounds bilaterally. HEART: Regular rate, regular rhythm, no murmur, no gallops. ABDOMEN: Soft, positive bowel sounds, nondistended, no guarding, diffuse tenderness, no rebound, no masses, RECTAL: Deferred. GENITAL: Deferred. NEUROLOGICAL: Gross motor function intact sensory function intact, Appropriate for age. MUSCULOSKELETAL: low back nontender, full range of motion. EXTREMITIES: Nontender, full range of motion. SKIN: Color pink, dry, no rash, no lacerations, no abrasions, no contusions. LYMPHATICS: Deferred. Course Quality Measures none Orders Category Date Time Status CT Screening NOW Care 01/18/25 11:40 Active Occult Blood,Stool (Nursing) ONCE Care 01/18/25 11:[address] abdomen pelvis w con Stat Exams 01/18/25 11:39 Completed CBC Stat Lab 01/18/25 11:49 Completed Comprehensive Metabolic Panel Stat Lab 01/18/25 11:49 Completed HCG Qualitative,Urine Stat Lab 01/18/25 12:57 Completed Prothrombin Time with INR Stat Lab 01/18/25 11:49 Completed Red Blood Cells Stat Lab 01/18/25 11:49 Results Type and Screen Stat Lab 01/18/25 11:49 Results Urinalysis Stat Lab 01/18/25 12:57 Completed DiphenhydrAMINE INJ [Benadryl Inj] Med 01/18/25 14:08 Discontinued 50 mg IVP X1 ONE HYDROmorphone INJ [Dilaudid Inj] Med 01/18/25 11:39 Discontinued 1 mg IVP X1 ONE HYDROmorphone INJ [Dilaudid Inj] Med 01/18/25 15:33 Discontinued 1 mg IVP X1 ONE Hydromorphone HCl [Dilaudid] Med 01/18/25 15:54 Once 2 mg PO X1 ONE Ondansetron Inj [Zofran Inj] Med 01/18/25 11:39 Discontinued 4 mg IVP X1 ONE Pantoprazole Inj [Protonix Inj] Med 01/18/25 11:39 Discontinued 80 mg IVP X1 ONE Ringers Lactated 1000 ml [Lactated Ringers] 1,000 ml Med 01/18/25 11:40 Discontinued IV 999 mls/hr Vital Signs Vital signs: Vital Signs Temperature 98.2 F 01/18/25 11: Pulse Rate 78 01/18/25 11:26 Respiratory Rate 17 01/18/25 11: Blood Pressure 122/85 H 01/18/25 11: Pulse Oximetry (%) 98 01/18/25 11:26 Oxygen Delivery Method Room Air 01/18/25 11:26 Abdominal Pain MDM MDM Narrative MDM Narrative:: 44-year-old female patient with significant history of peptic ulcer disease, came in for evaluation of vomiting blood and blood in the stool. Onset of symptoms earlier this week was vomiting blood and blood in the stool, associated with abdominal pain described as dull ache, severity moderate. Patient had colonoscopy a month ago and was advised that she had ulcer in the stomach. Patient is supposed to go to [facility]. For further management. Went to the clinic of Dr. Zhu, and was advised to come to the emergency room for further management. She is not taking any blood thinner. She is not an alcoholic. Patient's workup today all came back unremarkable and this is no sign of anemia hemoglobin 12.8, hematocrit of 40.7 except for slight leukocytosis 12.9 rest of the labs unremarkable. Patient CT scan of the abdomen and pelvis came back unremarkable urinalysis no UTI. Patient was given IV fluids, Pepcid and some Zofran and Dilaudid p.o. with significant improvement of symptoms. Spoke with Dr. Zhu, GI specialist on-call, told me that patient is okay to be discharged home, follow-up in the clinic next week. Plan of care discussed with the patient who agrees to be discharged home. Patient data External records reviewed:: None Clinical information provided by:: patient Social determinants that could affect healthcare access:: none Patient has the following chronic illnesses:: History of upper GI bleed How is presenting disease/condition affected by chronic disease/condition?: exacerbated by Evaluation data The following diagnostics were reviewed and interpreted by me:: lab results and radiology exam(s) Lab and/or radiology exams considered but not ordered:: None Interpretation Summary: See results MDM Medications / Prescriptions Medications or Prescriptions considered but not ordered:: None Medication administrations:: Medication Administration History Discontinued Medications Diphenhydramine HCl (Diphenhydramine Inj 50 Mg/Ml Vial) 50 mg IVP X1 ONE Stop: 01/18/25 14:09 Last Admin: 01/18/25 14:20 Dose: 50 mg Documented By: ISMAEL Hydromorphone HCl (Hydromorphone Inj 2 Mg/Ml Vial) 1 mg IVP X1 ONE Stop: 01/18/25 11:40 Last Admin: 01/18/25 15:35 Dose: Not Given Documented By: SOREN Non-Admin Reason: Discontinued Hydromorphone HCl (Hydromorphone Inj 2 Mg/Ml Vial) 1 mg IVP X1 ONE Stop: 01/18/25 15:34 Last Admin: 01/18/25 15:52 Dose: Not Given Documented By: SOREN Non-Admin Reason: Cancelled by Provider Lactated Ringer's (Lactated Ringers) 1,000 mls @ 999 mls/hr IV .Q1H1M ONE Stop: 01/18/25 12:40 Last Admin: 01/18/25 15:47 Dose: Not Given Documented By: SOREN Non-Admin Reason: Cancelled by Provider Ondansetron HCl (Ondansetron Inj 2 Mg/Ml Inj 2 Ml) 4 mg IVP X1 ONE; Protocol Stop: 01/18/25 11:40 Last Admin: 01/18/25 15:39 Dose: 4 mg Documented By: SOREN Pantoprazole Sodium (Pantoprazole Inj 40 Mg Vial) 80 mg IVP X1 ONE Stop: 01/18/25 11:40 Last Admin: 01/18/25 15:38 Dose: 80 mg Documented By: SOREN See [facility] Consultations Consultation(s) initiated? (list below): No Diagnosis Differential diagnosis abdominal pain: abdominal pain and constipation Most likely diagnosis given after review of the tests above:: Upper GI bleed, abdominal pain, headache Admission Indicated Admission indicated?: not indicated Explain why admission is indicated or not indicated:: Patient is stable Admission Request Was there a request for admission?: No Disposition Plan Disposition Plan: Discharge Discharge Attestation Discharge Attestation: The patient was given an opportunity to ask questions and understood the discharge instructions. Discharge instructions specifically effects, indications for sooner follow up or return to the emergency department, and the expected course of current diagnosis. Patient condition: Stable Discharge Plan Plan Patient Disposition: HOME (Self Care) Prescriptions/Referrals Prescriptions/Med Rec: New pantoprazole [Protonix] 40 mg tablet,delayed release (DR/EC) 40 mg PO BID Qty: 20 0RF dicyclomine 20 mg tablet 20 mg PO QID PRN (Reason: abdominal pain) Qty: 30 0RF No Action Nurtec ODT 75 mg tablet,disintegrating 75 mg PO QDAY PRN (Reason: migraine headache) sertraline [Zoloft] 100 mg tablet 100 mg PO HS lisinopril-hydrochlorothiazide 10-12.5 mg tablet 2 tab PO HS clonazepam 1 mg tablet 2 mg PO Q12H Patient Comments: TAKE 1 TABLET BY MOUTH THREE TIMES DAILY zolpidem 12.5 mg tablet,ext release multiphase 12.5 mg PO HS Patient Comments: TAKE 1 TABLET BY MOUTH EVERY DAY AT BEDTIME omeprazole 40 mg capsule,delayed release(DR/EC) 40 mg PO QDAY Qty: 30 0RF Referrals: No Primary/Family,Physician [Primary Care Provider] - In 1 week Problem List Clinical Impression: Abdominal pain, Headache, Vomiting of blood Patient/Caregiver Discharge Instructions Discharge Activity: activity as tolerated Education Materials: Abdominal Pain Additional Instructions: Thank you for the opportunity for serving you today. You are stable for discharged . You are advised to: Follow-up with Dr Zhu next week Return to ED for worsening of symptoms Increase oral fluids Take medication as prescribed Print Language: Finnish Stand Alone Forms: Tarah Award Info., Patient Portal Info Letter PA/INDUSTRY OPERATIONS INVESTIGATOR Supervising Physician REX/INDUSTRY OPERATIONS INVESTIGATOR Supervising Physician: MD Finn
[2025-01-18 12:13] LABS: Basophils # (Auto) 0.1 Thou/mm3 (0.0-0.2); Basophils % (Auto) 1 % (0-2.5); Eosinophils # (Auto) 0.3 Thou/mm3 (0.0-0.5); Eosinophils % (Auto) 2 % (0-10); Hematocrit 40.7 % (36.0-46.0); Hemoglobin 12.8 g/dL (12.0-16.0); Immature Granulocytes Auto 0.04 Thou/mm3 (0.00-0.00); Lymphocytes # (Auto) 4.6 Thou/mm3 (1.0-4.8); Lymphocytes % (Auto) 36 % (10-50); Mean Corpuscular HGB Conc 31.4 g/dl (31.0-37.0); Mean Corpuscular Hemoglobin 27.5 pg (25.0-35.0); Mean Corpuscular Volume 87 fL (80-100); Monocytes # (Auto) 0.7 Thou/mm3 (0.0-0.8); Monocytes % (Auto) 5 % (0-12); Neutrophils # (Auto) 7.3 Thou/mm3 (1.8-7.7); Neutrophils % (Auto) 57 % (37-80); Nucleated Red Blood Cell # 0.00 Thou/mm3 (0.00-0.00); Nucleated Red Blood Cell % 0 /100 WBC (0); Platelet Count 276 Thou/mm3 (140-440); RDW Standard Deviation 47.5 fL (36.4-46.3); Red Blood Count 4.66 Miln/mm3 (4.00-5.20); White Blood Count 12.9 Thou/mm3 (3.6-11.0)
[2025-01-18 12:28] LABS: INR 1.0 (0.9-1.3); Prothrombin Time 10.3 Seconds (9.0-12.2)
[2025-01-18 12:30] LABS: Alanine Aminotransferase 20 U/L (10-49); Albumin, Serum 4.5 gm/dL (3.5-5.0); Albumin/Globulin Ratio 1.9 (1.2-2.2); Alkaline Phosphatase 75 U/L (46-116); Anion Gap 6 (7-16); Aspartate Amino Transferase 14 U/L (0-34); BUN/Creatinine Ratio 7 Ratio (12-20); Bilirubin,Total 0.2 mg/dL (0.3-1.2); Blood Urea Nitrogen 7 mg/dL (9-23); Calcium 9.8 mg/dL (8.3-10.6); Calcium (Corrected) 9.8 mg/dL (8.5-10.1); Carbon Dioxide 29.7 mMol/L (20.0-31.0); Chloride 103 mMol/L (98-107); Creatinine (Component) 1.0 mg/dL (0.6-1.3); Estimated Creatinine Clearance 100.5 mL/min (>60); Globulin 2.4 gm/dL (2.3-3.5); Glucose 85 mg/dL (74-106); Osmolality,Calculated 274 (275-295); Potassium 4.0 mMol/L (3.4-5.1); Sodium 139 mMol/L (136-145); Total Protein 6.9 gm/dL (5.7-8.2); eGFR > 60 See Note
[2025-01-18 13:08] LABS: Collection Type, Urine Clean Catch
[2025-01-18 13:19] LABS: HCG Qualitative,Urine Negative
[2025-01-18 13:20] LABS: Bilirubin,Urine Negative (Negative); Blood,Urine Negative (Negative); Clarity,Urine Clear (Clear/Hazy); Color,Urine Yellow (Lt Yel-Yel); Glucose, Urine Negative (Negative); Hyaline Casts,Urine < 1 /hpf (0-1); Ketones,Urine Negative (Negative); Leukocyte Esterase,Urine Negative (Negative); Nitrite,Urine Negative (Negative); PH,Urine 6.0 (5.0-7.0); Protein,Urine Trace (Neg - Trace); RBC,Urine 2 /hpf (0-3); Specific Gravity,Urine 1.032 (1.001-1.035); Squamous Epithelial Cell,Urine 10 /hpf (0-5); Urobilinogen,Urine Negative mg/dL (0.0-1.0); WBC,Urine 1 /hpf (0-5)
[2025-01-18] MEDS: ONDANSETRON INJ 2 MG/ML INJ 2 ML 4 MG IVP (15:39)
[2025-01-18] MEDS: HYDROMORPHONE HCL 2 MG TABLET PO (16:06)
== END 2025-01-18 16:53 | disposition home or self-care (01) ==
PROVIDERS: Nurse Practitioner Family; Emergency Provider Family Medicine
DX: R10.9 Unspecified abdominal pain (principal); R51.9 Headache, unspecified; K92.0 Hematemesis; Z87.11 Personal history of peptic ulcer disease; Z98.890 Other specified postprocedural states
CPT/HCPCS: 36415; 74177; 80053; 81001; 81025; 85025; 85610; 86850; 86900; 86901; 86923; 96374; 96375; 99284; A4649; J1171; J1200; J2405; J2470; J7120; Q9967; A9270

== ENCOUNTER 2025-01-19 19:09 | Emergency (ER) | payer BC, SELFPAY ==
[2025-01-19 19:10] VITALS: BMI 38.9
--- NOTE | 2025-01-19 19:54 | XR_ITS ---
Examination: Foot, right, 3 views Technique: AP, oblique, lateral views foot, 3 views Date and time of exam: January 19, 2025, 2021 hrs. Indications: Patient fell today with injury to the foot, foot pain. Findings: Acute fractures distal fifth metatarsal, no significant displacement Acute fractures bases of the fifth metatarsal without significant displacement No foreign body Impression: Acute fractures distal fifth metacarpal Acute fractures base of the fifth metatarsal
--- NOTE | 2025-01-19 20:42 | XR_ITS ---
EXAMINATION: Ankle, right 3 views . Technique: Ankle AP, oblique, lateral 3 views Date and time of exam: January 19, 2025, 2047 hrs. Indications: Patient fell today with injury to the ankle, ankle pain Findings: Acute fracture nondisplaced base base fifth metatarsal Partial medial lateral malleolar regions appear intact, no ankle dislocation Impression: Acute nondisplaced fracture base fifth metatarsal
[2025-01-19 20:57] VITALS: BP 147/102; PULSE 87; RESP 17; TEMP 36.7; O2SAT 97
--- NOTE | 2025-01-19 21:07 | PD.EDANKLE ---
Lower Extremity Injury RME/HPI General Chief Complaint: Fall Stated Complaint: FALL, RIGHT FOOT INJURY Time Seen by Provider: 01/19/25 20:42 Arrival date/time: 01/19/25 19:09 44F with history of HTN and psych presents to ED with R foot/ankle pain after falling down some steps. Limitations: no limitations Related Data Home Medications ?Medication ?Instructions ?Recorded ?Confirmed clonazepam 1 mg tablet 2 mg PO Q12H 11/21/24 11/21/24 lisinopril 10 2 tab PO HS 11/21/24 11/21/24 mg-hydrochlorothiazide 12.5 mg tablet rimegepant 75 mg disintegrating 75 mg PO QDAY PRN migraine headache 11/21/24 11/21/24 tablet (Nurtec ODT) sertraline 100 mg tablet (Zoloft) 100 mg PO HS 11/21/24 11/21/24 zolpidem 12.5 mg tablet,extended 12.5 mg PO HS 11/23/24 11/23/24 release,multiphase Previous Rx's ?Medication ?Instructions ?Recorded omeprazole 40 mg capsule,delayed 40 mg PO QDAY #30 caps 11/23/24 release dicyclomine 20 mg tablet 20 mg PO QID PRN abdominal pain 01/18/25 #30 tabs pantoprazole 40 mg tablet,delayed 40 mg PO BID #20 tabs 01/18/25 release (Protonix) naproxen 500 mg tablet 500 mg PO BID PRN pain #10 tabs 01/19/25 Allergies Allergy/AdvReac Type Severity Reaction Status Date / Time hydrocodone (From Vicodin) Allergy Severe ITCHY Verified 01/19/25 19:10 metoclopramide (From Reglan) Allergy Severe Anxiety Verified 01/19/25 19:10 Review of Systems Review of Systems Systems Reviewed: All systems reviewed, normal except as documented Musculoskeletal Musculoskeletal: Reports as per HPI and Reports arthralgias Past Medical History Past Medical History NEUROLOGIC: Positive Migraine; Negative Neurological Disorders or Seizures CARDIAC: Positive Hypercholesterolemia and Hypertension; Negative Cardiac Disorders or Congestive Heart Failure RESPIRATORY: Negative Chronic Obstructive Pulmonary Disease (COPD) or Asthma GASTROINTESTINAL: Positive Gastrointestinal Bleed; Negative Gastrointestinal Disorders, Hepatitis or Colorectal Cancer GENITOURINARY: Negative Genitourinary Disorders, Renal Disease or Prostate Cancer REPRODUCTIVE: Positive Previous Pregnancies; Negative Breast Cancer, Genital Herpes, Gonorrhea, Pelvic Inflammatory Disease, Syphilis or Testicular Cancer MUSCULOSKELETAL: Negative Musculoskeletal Disorders or Bone Cancer ENDOCRINE: Negative Endocrine Disorders, Diabetes Mellitus Type 1 or Diabetes Mellitus Type 2 HEMATOLOGIC: Positive Anemia; Negative Blood Disorders or Sickle Cell Disease PSYCHO/SOCIAL: Positive Depression, Anxiety and Depression OTHER HISTORY: Positive Hospitalization; Negative Autoimmune Disease, Down Syndrome, Developmental Delay, Shingles, Falls, Blood Transfusions, Blood Transfusion Reaction, Anesthesia Reactions (vomiting after), Organ Transplant, Chemotherapy, Radiation Therapy, Hyperbaric Therapy, MRSA, VRSA, Vancomycin-Resistant Enterococci, Human Immunodeficiency Virus (HIV), Chicken Pox, Measles, Mumps, Rubella ([place] Measles), Pertussis, Clostridium Difficile, Breast Cancer, Cervical Cancer, Colorectal Cancer, Lung Cancer, Ovarian Cancer, Prostate Cancer or Testicular Cancer Family History FAMILY HISTORY: Positive Family Cardiac Disorders, Family Cancer and Family Surgery; Negative Family Psychiatric Problems, Family Respiratory Disorders, Family Gastrointestinal Problems or Family Anesthesia Reaction Surgical History SURGICAL: Positive Section; Negative Organ Transplant Social History SMOKING STATUS: Never smoker SECOND HAND EXPOSURE: No ED Exam General Limitations: Present no limitations General appearance: Present alert and in no apparent distress Head Head exam: Present atraumatic Neck Neck exam: Present normal inspection, full ROM and trachea midline Chest Chest inspection: Present normal inspection and symmetric chest wall rise Expanded Lower Extremity Exam Ankle exam: Present tenderness (R) and swelling Foot/toe exam: Present tenderness and swelling Neurological Exam Neurological exam: Present alert, oriented X3 and CN II-XII intact Psychiatric Psychiatric exam: Present normal affect and normal mood Skin Skin exam: Present warm, dry, intact and normal color Course Quality Measures none Orders Category Date Time Status Crutches .NOW Care 01/19/25 20:42 Active XR ankle comp RT min 3V Stat Exams 01/19/25 20:42 Completed XR foot comp RT min 3V Stat Exams 01/19/25 19:54 Completed Naproxen [Naprosyn] Med 01/19/25 21:37 Discontinued 500 mg PO X1 ONE Vital Signs Vital signs: Vital Signs Temperature 98.1 F 01/19/25 20:57 Pulse Rate 87 01/19/25 20:57 Respiratory Rate 17 01/19/25 20:57 Blood Pressure 147/102 H 01/19/25 20:57 Pulse Oximetry (%) 97 01/19/25 20:57 Oxygen Delivery Method Room Air 01/19/25 20:57 O2 at 97% on RA and WNLs Extremity Injury, Lower MDM Narrative MDM Narrative:: 44F with history of HTN and psych presents to ED with R foot/ankle pain after falling down some steps. Physical exam reveals R ankle/foot swelling and tenderness. ROM limited. Patient is afebrile, calm, and alert. XR foot fx. Given boot, crutches, meds, and sexual abuse counsellor. Patient data External records reviewed:: [facility] previous records Clinical information provided by:: patient Social determinants that could affect healthcare access:: mental health Patient has the following chronic illnesses:: HTN and psych How is presenting disease/condition affected by chronic disease/condition?: uneffected by Evaluation data The following diagnostics were reviewed and interpreted by me:: radiology exam(s) Lab and/or radiology exams considered but not ordered:: ordered Interpretation Summary: above Medications / Prescriptions Medications or Prescriptions considered but not ordered:: ordered Medication administrations:: Medication Administration History Discontinued Medications Naproxen (Naproxen 250 Mg Tablet) 500 mg PO X1 ONE Stop: 01/19/25 21:38 Last Admin: 01/19/25 21:49 Dose: 500 mg Documented By: CVL above Consultations Consultation(s) initiated? (list below): No Diagnosis Extremity Injury, Lower Differential Diagnosis: ankle sprain and strain, acute internal derangement of knee, puncture wound of foot, fracture of toe, ankle fracture and other (foot fx) Most likely diagnosis given after review of the tests above:: foot fx Admission Indicated Admission indicated?: not indicated Admission Request Was there a request for admission?: No Disposition Plan Disposition Plan: Discharge Discharge Attestation Discharge Attestation: The patient and all family members were given an opportunity to ask questions and understood the discharge instructions. Discharge instructions specifically effects, indications for sooner follow up or return to the emergency department, and the expected course of current diagnosis. Patient condition: Stable Discharge Plan Plan Patient Disposition: HOME (Self Care) Discharge Disposition comment: Stable Prescriptions/Referrals Prescriptions/Med Rec: New naproxen 500 mg tablet 500 mg PO BID PRN (Reason: pain) Qty: 10 0RF No Action pantoprazole [Protonix] 40 mg tablet,delayed release (DR/EC) 40 mg PO BID Qty: 20 0RF dicyclomine 20 mg tablet 20 mg PO QID PRN (Reason: abdominal pain) Qty: 30 0RF Nurtec ODT 75 mg tablet,disintegrating 75 mg PO QDAY PRN (Reason: migraine headache) sertraline [Zoloft] 100 mg tablet 100 mg PO HS lisinopril-hydrochlorothiazide 10-12.5 mg tablet 2 tab PO HS clonazepam 1 mg tablet 2 mg PO Q12H Patient Comments: TAKE 1 TABLET BY MOUTH THREE TIMES DAILY zolpidem 12.5 mg tablet,ext release multiphase 12.5 mg PO HS Patient Comments: TAKE 1 TABLET BY MOUTH EVERY DAY AT BEDTIME omeprazole 40 mg capsule,delayed release(DR/EC) 40 mg PO QDAY Qty: 30 0RF Referrals: No Primary/Family,Physician [Primary Care Provider] - In 1 week Problem List Clinical Impression: Foot fracture Patient/Caregiver Discharge Instructions Education Materials: ED Fracture, Foot Additional Instructions: Please follow-up with PCP within 24-48 hours and return immediately if symptoms worsen. Can see PCP for referral to ortho. Print Language: Eritrean Stand Alone Forms: Patient Portal Info Letter REX/BRANDEN Supervising Physician REX/BRANDEN Supervising Physician: Dr. Anthony
[2025-01-19] MEDS: NAPROXEN 250 MG TABLET 500 MG PO (21:49)
[2025-01-19 22:21] VITALS: RESP 14
== END 2025-01-19 22:22 | disposition home or self-care (01) ==
PROVIDERS: Emergency Provider Emergency Medicine
DX: S92.351A Displaced fracture of fifth metatarsal bone, right foot, initial encounter for closed fracture (principal); W10.9XXA Fall (on) (from) unspecified stairs and steps, initial encounter; I10 Essential (primary) hypertension
CPT/HCPCS: 73610; 73630; 99284; A9270

== ENCOUNTER 2025-01-20 19:09 | Emergency (ER) | payer BC, SELFPAY ==
[2025-01-20 19:30] VITALS: BP 150/89; PULSE 79; RESP 18; TEMP 36.9; O2SAT 97
[2025-01-20] MEDS: ONDANSETRON ODT 4 MG TABRAP PO (19:52)
[2025-01-20] MEDS: HYDROmorphone INJ 2 MG/ML VIAL 1 MG IM (19:52)
--- NOTE | 2025-01-20 19:54 | PC.NURSE ---
pt refused crutches. stated she already had 4 pairs at home and use of crutches is hard for her.
--- NOTE | 2025-01-20 19:55 | PD.EDANKLE ---
Lower Extremity Injury RME/HPI General Chief Complaint: Ankle/Foot Injury Stated Complaint: RIGHT FOOT PAIN Time Seen by Provider: 01/20/25 19:20 Arrival date/time: 01/20/25 19:09 RME / HPI RME / HPI Narrative: See [facility] for Dr. Anthony's HPI Documentation. Related Data Home Medications ?Medication ?Instructions ?Recorded ?Confirmed clonazepam 1 mg tablet 2 mg PO Q12H 11/21/24 11/21/24 lisinopril 10 2 tab PO HS 11/21/24 11/21/24 mg-hydrochlorothiazide 12.5 mg tablet rimegepant 75 mg disintegrating 75 mg PO QDAY PRN migraine headache 11/21/24 11/21/24 tablet (Nurtec ODT) sertraline 100 mg tablet (Zoloft) 100 mg PO HS 11/21/24 11/21/24 zolpidem 12.5 mg tablet,extended 12.5 mg PO HS 11/23/24 11/23/24 release,multiphase Previous Rx's ?Medication ?Instructions ?Recorded omeprazole 40 mg capsule,delayed 40 mg PO QDAY #30 caps 11/23/24 release dicyclomine 20 mg tablet 20 mg PO QID PRN abdominal pain 01/18/25 #30 tabs pantoprazole 40 mg tablet,delayed 40 mg PO BID #20 tabs 01/18/25 release (Protonix) acetaminophen 500 mg tablet 500 mg PO Q6H PRN fever or pain 01/19/25 #10 tabs acetaminophen 300 mg-codeine 30 mg 2 tab PO Q8H PRN pain #20 tabs 01/20/25 tablet ondansetron 4 mg disintegrating 4 mg PO TID PRN nausea and 01/20/25 tablet vomiting 30 days #10 tabs Allergies Allergy/AdvReac Type Severity Reaction Status Date / Time hydrocodone (From Vicodin) Allergy Severe ITCHY Verified 01/20/25 19:12 metoclopramide (From Reglan) Allergy Severe Anxiety Verified 01/20/25 19:12 NSAIDS (Non-Steroidal Allergy Verified 01/20/25 19:12 Anti-Inflamma Review of Systems Review of Systems Systems Reviewed: All systems reviewed, normal except as documented Past Medical History Past Medical History NEUROLOGIC: Positive Migraine CARDIAC: Positive Hypercholesterolemia and Hypertension GASTROINTESTINAL: Positive Gastrointestinal Bleed REPRODUCTIVE: Positive Previous Pregnancies HEMATOLOGIC: Positive Anemia PSYCHO/SOCIAL: Positive Depression, Anxiety and Depression OTHER HISTORY: Positive Hospitalization Family History FAMILY HISTORY: Positive Family Cardiac Disorders, Family Cancer and Family Surgery Surgical History SURGICAL: Positive Section ED Exam Narrative Physical exam: See [facility] for Dr. Anthony's Physical Exam Documentation. Course Quality Measures none Orders Category Date Time Status Crutches .NOW Care 01/20/25 19:38 Completed HYDROmorphone INJ [Dilaudid Inj] Med 01/20/25 19:38 Discontinued 1 mg IM X1 ONE Ondansetron Odt [Zofran Odt] Med 01/20/25 19:38 Discontinued 4 mg PO X1 ONE Vital Signs Vital signs: Vital Signs Temperature 98.5 F 01/20/25 19:30 Pulse Rate 79 01/20/25 19:30 Respiratory Rate 18 01/20/25 19:30 Blood Pressure 150/89 H 01/20/25 19:30 Pulse Oximetry (%) 97 01/20/25 19:30 Oxygen Delivery Method Room Air 01/20/25 19:30 Extremity Injury, Lower MDM Narrative [facility] Narrative:: This section includes all my notes and documentations, including HPI, PE, and ED course. Silvino Anthony MD HPI: 44 y/o female requesting help with pain management s/p fracturing her right foot yesterday. Was seen here. Was only given ibuprofen. No other complaints. ROS: All negative except as documented in HPI. Physical Exam: General: Alert and oriented. No acute distress when remaining still. Eyes: Conjunctivae and lids clear. ENT: No nasal congestion. Neck: Supple. Lungs: No respiratory distress. Skin: Warm and dry. Neuro: Alert and oriented X 3. Right Foot: Splint intact. No NVT injury. At this point, diagnoses include: Fracture of the right foot Treatment here included: Zofran ODT 4 mg Dilaudid 1 mg IM Crutches Recommended outpatient care. Based on my best medical judgment, made decision no further evaluation or treatment indicated at this time. Patient understands and agrees to the discharge instructions customized and printed, see below. Discharge Instructions from Dr. Anthony printed for you: 1. Wear the postop shoe and no weightbearing using the crutches until cleared by a doctor taking care of you. 2. Elevate above the waist level for 3 days. 3. Apply ice for 20 minutes every 2-3 hours today and tomorrow. 4. Tylenol with codeine for severe pain. 5. See a private doctor on 01/22/2025 for recheck and further care. Ask for help until you are completely better. Ask for referral to see orthopedic surgeon. 6. Seek immediate medical care with intolerable pain, if you can't move the toes, the toes turn cold and blue, or with any concerns. Silvino Anthony MD Patient data External records reviewed:: [facility] previous records (Reviewed prior ED records from 01/19/25. Patient was seen for Foot fracture.) Clinical information provided by:: patient Social determinants that could affect healthcare access:: none Patient has the following chronic illnesses:: Migraine, Hypercholesterolemia, Hypertension, Anemia, Depression, Anxiety and Depression How is presenting disease/condition affected by chronic disease/condition?: uneffected by Evaluation data The following diagnostics were reviewed and interpreted by me:: other (specify) (No diagnostics ordered.) Lab and/or radiology exams considered but not ordered:: None Interpretation Summary: None Medications / Prescriptions Medications or Prescriptions considered but not ordered:: None Medication administrations:: Medication Administration History Discontinued Medications Hydromorphone HCl (Hydromorphone Inj 2 Mg/Ml Vial) 1 mg IM X1 ONE Stop: 01/20/25 19:39 Last Admin: 01/20/25 19:52 Dose: 1 mg Documented By: DREAD Ondansetron HCl (Ondansetron Odt 4 Mg Tabrap) 4 mg PO X1 ONE; Protocol Stop: 01/20/25 19:39 Last Admin: 01/20/25 19:52 Dose: 4 mg Documented By: DREAD Dilaudid 1 mg IM Zofran ODT 4 mg Consultations Consultation(s) initiated? (list below): No Diagnosis Extremity Injury, Lower Differential Diagnosis: other (Right foot fracture) Most likely diagnosis given after review of the tests above:: Fracture of the right foot Admission Indicated Admission indicated?: not indicated Explain why admission is indicated or not indicated:: With significant improvement and no condition needing emergent intervention, there was no indication for admission. Admission Request Was there a request for admission?: No Disposition Plan Disposition Plan: Discharge Discharge Attestation Discharge Attestation: The patient and all family members were given an opportunity to ask questions and understood the discharge instructions. Discharge instructions specifically effects, indications for sooner follow up or return to the emergency department, and the expected course of current diagnosis. Patient condition: Stable Discharge Plan Plan Patient Disposition: HOME (Self Care) Prescriptions/Referrals Prescriptions/Med Rec: New acetaminophen-codeine 300-30 mg tablet 2 tab PO Q8H MDD 6 PRN (Reason: pain) Qty: 20 0RF ondansetron 4 mg tablet,disintegrating 4 mg PO TID PRN (Reason: nausea and vomiting) 30 Days Qty: 10 0RF No Action pantoprazole [Protonix] 40 mg tablet,delayed release (DR/EC) 40 mg PO BID Qty: 20 0RF dicyclomine 20 mg tablet 20 mg PO QID PRN (Reason: abdominal pain) Qty: 30 0RF Nurtec ODT 75 mg tablet,disintegrating 75 mg PO QDAY PRN (Reason: migraine headache) sertraline [Zoloft] 100 mg tablet 100 mg PO HS lisinopril-hydrochlorothiazide 10-12.5 mg tablet 2 tab PO HS clonazepam 1 mg tablet 2 mg PO Q12H Patient Comments: TAKE 1 TABLET BY MOUTH THREE TIMES DAILY zolpidem 12.5 mg tablet,ext release multiphase 12.5 mg PO HS Patient Comments: TAKE 1 TABLET BY MOUTH EVERY DAY AT BEDTIME omeprazole 40 mg capsule,delayed release(DR/EC) 40 mg PO QDAY Qty: 30 0RF acetaminophen 500 mg tablet 500 mg PO Q6H PRN (Reason: fever or pain) Qty: 10 0RF Problem List Clinical Impression: Fracture of right foot Patient/Caregiver Discharge Instructions Discharge Activity: activity as tolerated Education Materials: ED Fracture, Foot Additional Instructions: Discharge Instructions from Dr. Anthony printed for you: 1. Wear the postop shoe and no weightbearing using the crutches until cleared by a doctor taking care of you. 2. Elevate above the waist level for 3 days. 3. Apply ice for 20 minutes every 2-3 hours today and tomorrow. 4. Tylenol with codeine for severe pain. 5. See a private doctor on 01/22/2025 for recheck and further care. Ask for help until you are completely better. Ask for referral to see orthopedic surgeon. 6. Seek immediate medical care with intolerable pain, if you can't move the toes, the toes turn cold and blue, or with any concerns. Print Language: Ecuadorean Stand Alone Forms: [employer]ah Award Info., Patient Portal Info Letter
== END 2025-01-20 19:56 | disposition home or self-care (01) ==
LOC: SERX 20:04
PROVIDERS: Emergency Provider Emergency Medicine
DX: S92.901A Unspecified fracture of right foot, initial encounter for closed fracture (principal); E78.00 Pure hypercholesterolemia, unspecified; I10 Essential (primary) hypertension; X58.XXXA Exposure to other specified factors, initial encounter
CPT/HCPCS: 96372; 99284; J1171; Q0162

== ENCOUNTER 2025-01-22 13:33 | Emergency (ER) | payer BC, SELFPAY ==
[2025-01-22 13:46] VITALS: BP 146/90; PULSE 108; RESP 20; TEMP 37.1; O2SAT 96; BMI 39.5
--- NOTE | 2025-01-22 13:50 | XR_ITS ---
Examination: CT Examination: CT right foot, without contrast. 2-D sagittal reconstructions. 2-D coronal reconstructions. 3-D reconstructions. Date and time of exam:January 22, 2025, 1543 hours INDICATIONS: Patient fell 4 days ago with injury to the foot, foot pain CTDI: vol (mGy):4.99 DLP: (mGycm):154 Technique: Multiple 1.25 mm axial sections of the right foot without intravenous contrast have been obtained. 2-D sagittal and coronal reconstructions have been obtained. 3-D reconstructions have been obtained. Low dose protocols were performed. One or more of the following dose reduction techniques were used; automated exposure control, adjustment of the mA and/or KV according to patient size, use of iterative reconstruction technique. Findings: Talus calcaneous cuboid appear intact Nondisplaced fracture at the base of the fifth metatarsal Acute fracture fifth metatarsal neck Remaining metatarsals appear intact Digits appear intact IMPRESSION: Acute fractures base and neck of the fifth metatarsal
--- NOTE | 2025-01-22 14:03 | EDRME_ITS ---
Rapid Medical Screening Exam [facility] Arrival date/time: 01/22/25 13:33 44-year-old female with no known medical history presents to the emergency room with a chief complaint of right foot swelling tenderness and bruising x 1 week. Patient states she had an injury where she rolled a while she fell from stairs. Patient has been seen 3 times in the emergency room and is told she has a fracture to the fifth digit the patient states her pain swelling and bruising have significantly gotten worse. I have greeted and performed a focused initial assessment of this patient. A comprehensive ED assessment and evaluation of the patient, analysis of all test results, and completion of the medical decision making process will be conducted by additional ED providers. Chief Complaint: Ankle/Foot Injury Time Seen by Provider: 01/22/25 13:45 Vital signs: Vital Signs Temperature 98.7 F 01/22/25 13:46 Pulse Rate 108 H 01/22/25 13:46 Respiratory Rate 20 01/22/25 13:46 Blood Pressure 146/90 H 01/22/25 13:46 Pulse Oximetry (%) 96 01/22/25 13:46 Oxygen Delivery Method Room Air 01/22/25 13:46 Vital signs reviewed by provider: Yes
--- NOTE | 2025-01-22 17:33 | EDNOTE_ITS ---
<Statement entered by Georgette Chu MD - 01/23/25 16:01> As co-signing physician, I was present and available for consult prn. I concur with the plan and care as documented by the midlevel provider. ED General RME/HPI General Chief complaint: Ankle/Foot Injury Stated complaint: R) TOES BLUE/NUMB/COLD; SEVERE PAIN Time Seen by Provider: 01/22/25 13:45 Arrival date/time: 01/22/25 13:33 CC: Persistent right foot pain HPI patient broke her foot approximately 1 week ago after falling down stairs, has had multiple visits for the same complaint of the same foot without additional trauma. Patient was informed twice she had a foot fracture and once that she had a toe fracture. Patient states she feels the pain is out of proportion for the injury sustained. Patient denies fever chills chest pain shortness of breath or difficulty breathing. RME / HPI RME / HPI narrative: 01/22/25 13:33 44-year-old female with no known medical history presents to the emergency room with a chief complaint of right foot swelling tenderness and bruising x 1 week. Patient states she had an injury where she rolled a while she fell from stairs. Patient has been seen 3 times in the emergency room and is told she has a fr acture to the fifth digit the patient states her pain swelling and bruising have significantly gotten worse. I have greeted and performed a focused initial assessment of this patient. A comprehensive ED assessment and evaluation of the patient, analysis of all test results, and completion of the medical decision making process will be conducted by additional ED providers. Related Data Home Medications ?Medication ?Instructions ?Recorded ?Confirmed clonazepam 1 mg tablet 2 mg PO Q12H 11/21/24 lisinopril 10 2 tab PO HS 11/21/24 5 mg-hydrochlorothiazide 12.5 mg tablet rimegepant 75 mg disintegrating 75 mg PO QDAY PRN migr montrell headache 11/21/24 11/21/24 tablet (Nurtec ODT) sertraline 100 mg tablet (Zoloft) 100 mg PO HS 5 11/21/24 zolpidem 12.5 mg tablet,extended 12.5 mg PO HS 5 11/23/24 release,multiphase Previous Rx's ?Medication ?Instructions ?Recorded omeprazole 40 mg capsule,delayed 40 mg PO QDAY #30 cap s 11/23/24 release dicyclomine 20 mg tablet 20 mg PO QID PRN abdominal p ain 01/18/25 #30 tabs pantoprazole 40 mg tablet,delayed 40 mg PO BID #20 tab s 01/18/25 release (Protonix) acetaminophen 500 mg tablet 500 mg PO Q6H PRN fever or pain 01/19/25 #10 tabs acetaminophen 300 mg-codeine 30 mg 2 tab PO Q8H PRN pa in #20 tabs 01/20/25 tablet ondansetron 4 mg disintegrating 4 mg PO TID PRN nausea and 01/20/25 tablet vomiting 30 days #10 tabs acetaminophen 500 mg capsule 500 mg PO Q6H PRN pain #2 0 caps 01/22/25 ondansetron 4 mg disintegrating 4 mg PO Q8H #10 tabs 1 tablet Allergies Allergy/AdvReac Type Severity Reaction Status Date / Time hydrocodone (From Vicodin) Allergy Severe ITCHY Verified 01/22/25 13:40 ibuprofen Allergy Severe VOMIT BLOOD Verified 01/22/25 13:40 metoclopramide (From Reglan) Allergy Severe Anxiety Verified 01/22/25 13:40 NSAIDS (Non-Steroidal Allergy Verified 01/22/25 13:40 Anti-Inflamma Review of Systems Review of Systems Narrative Review of Systems: GEN: No fever, no chills, no weight loss EYES: No discharge, no visual changes, no pain HEENT: No ear pain, no congestion, no sore throat PULM: No shortness of breath, no cough, no congestion CV: No chest pain, no dyspnea on exertion, no palpitations GI: No nausea, no vomiting, no diarrhea, no pain, no constipation : No frequency, no urgency, no dysuria MUSC/SKEL: No joint pain, no back pain, + toe pain SKIN: No rash PSYCH: No hallucinations, no depression HEME/LYMPH: No easy bleeding or bruising tendencies NEURO: No weakness, no headache Past Medical History Past Medical History NEUROLOGIC: Positive Migraine; Negative Neurological Disorders or Seizures CARDIAC: Positive Hypercholesterolemia and Hypertension; Negative Cardiac Disorders or Congestive Heart Failure RESPIRATORY: Negative Chronic Obstructive Pulmonary Disease (COPD) or Asthma GASTROINTESTINAL: Positive Gastrointestinal Bleed; Negative Gastrointestinal Disorders, Hepatitis or Colorectal Cancer GENITOURINARY: Negative Genitourinary Disorders, Renal Disease or Prostate Cancer REPRODUCTIVE: Positive Previous Pregnancies; Negative Breast Cancer, Genital Herpes, Gonorrhea, Pelvic Inflammatory Disease, Syphilis or Testicular Cancer MUSCULOSKELETAL: Negative Musculoskeletal Disorders or Bone Cancer ENDOCRINE: Negative Endocrine Disorders, Diabetes Mellitus Type 1 or Diabetes Mellitus Type 2 HEMATOLOGIC: Positive Anemia; Negative Blood Disorders or Sickle Cell Disease PSYCHO/SOCIAL: Positive Depression, Anxiety and Depression OTHER HISTORY: Positive Hospitalization; Negative Autoimmune Disease, Down Syndrome, Developmental Delay, Shingles, Falls, Blood Transfusions, Blood Transfusion Reaction, Anesthesia Reactions (vomiting after), Organ Transplant, Chemotherapy, Radiation Therapy, Hyperbaric Therapy, MRSA, VRSA, Vancomycin-Resistant Enterococci, Human Immunodeficiency Virus (HIV), Chicken Pox, Measles, Mumps, Rubella (Barbadian Measles), Pertussis, Clostridium Difficile, Breast Cancer, Cervical Cancer, Colorectal Cancer, Lung Cancer, Ovarian Cancer, Prostate Cancer or Testicular Cancer Family History FAMILY HISTORY: Positive Family Cardiac Disorders, Family Cancer and Family Surgery; Negative Family Psychiatric Problems, Family Respiratory Disorders, Family Gastrointestinal Problems or Family Anesthesia Reaction Surgical History SURGICAL: Positive Section; Negative Organ Transplant Social History SMOKING STATUS: Never smoker SECOND HAND EXPOSURE: No ED Exam Narrative Physical exam: [General: Obese in moderate discomfort but not in any acute distress Head normocephalic HEENT: Within acceptable limits Neck is supple nontender Chest equal chest rise nontender to palpation Respiratory: Clear to auscultation no wheezes crackles or rubs CV: Rate rhythm is regular no murmurs rubs or clicks Abdomen is distended secondary to body habitus soft nontender no masses positive bowel sounds all 4 quadrants Back: No CVA tenderness no spinous process tenderness from cervical spine thoracic and lumbar spine Skin: Intact no petechiae rash induration ulceration or crepitus Extremities: Right foot: Dorsal ecchymosis from the dorsum of the foot extends out onto the toes all the way to the nailbeds. All 5 toes have cap refill less than 2 seconds. Decreased range of motion secondary to pain. There is ecchymosis at the base of the toes on the sole side. No ecchymosis to the ball of the foot arch or the calcaneus. No streaking or redness in the ankle. Moving all extremity against resistance cap refill less than 2 seconds neurosensory intact Neuro: Awake alert oriented x3 Glascow coma 15 no focal deficits] Course Course Course Narrative: Of the low index of suspicion this is compartment syndrome as the patient has sensation of the tip of the toes with cap refill less than 2 seconds. Patient is advised to continue ice elevation and keep it in a wrap. Patient's case discussed with Dr. CHU who visually inspected the foot and agrees. Patient will be discharged home When asked about pain medication the patient stated she only can take Dilaudid because morphine makes her vomit. Also noted the patient has an allergy to ibuprofen. Quality Measures none Orders Category Date Time Status CT foot RT wo con Stat Exams 01/22/25 13:50 Completed Acetaminophen Tab [Tylenol ES Tab] Med 01/22/25 14:00 Discontinued 1,000 mg PO X1 ONE Ondansetron Odt [Zofran Odt] Med 01/22/25 17:32 Discontinued 4 mg PO X1 ONE oxyCODONE/APAP 5/325 [Percocet 5/325] Med 01/22/25 17:32 Discontinued 2 tab PO X1 ONE Vital Signs Vital signs: Vital Signs Temperature 98.7 F 01/22/25 13:46 Pulse Rate 108 H 01/22/25 13:46 Respiratory Rate 20 01/22/25 13:46 Blood Pressure 146/90 H 01/22/25 13:46 Pulse Oximetry (%) 96 01/22/25 13:46 Oxygen Delivery Method Room Air 01/22/25 13:46 Discharge Plan Plan Patient Disposition: HOME (Self Care) Patient condition on transfer: Stable Prescriptions/Referrals Prescriptions/Med Rec: New ondansetron 4 mg tablet,disintegrating 4 mg PO Q8H Qty: 10 0RF acetaminophen 500 mg capsule 500 mg PO Q6H PRN (Reason: pain) Qty: 20 0RF No Action pantoprazole [Protonix] 40 mg tablet,delayed release (DR/EC) 40 mg PO BID Qty: 20 0RF dicyclomine 20 mg tablet 20 mg PO QID PRN (Reason: abdominal pain) Qty: 30 0RF acetaminophen-codeine 300-30 mg tablet 2 tab PO Q8H MDD 6 PRN (Reason: pain) Qty: 20 0RF ondansetron 4 mg tablet,disintegrating 4 mg PO TID PRN (Reason: nausea and vomiting) 30 Days Qty: 10 0RF Nurtec ODT 75 mg tablet,disintegrating 75 mg PO QDAY PRN (Reason: migraine headache) sertraline [Zoloft] 100 mg tablet 100 mg PO HS lisinopril-hydrochlorothiazide 10-12.5 mg tablet 2 tab PO HS clonazepam 1 mg tablet 2 mg PO Q12H Patient Comments: TAKE 1 TABLET BY MOUTH THREE TIMES DAILY zolpidem 12.5 mg tablet,ext release multiphase 12.5 mg PO HS Patient Comments: TAKE 1 TABLET BY MOUTH EVERY DAY AT BEDTIME omeprazole 40 mg capsule,delayed release(DR/EC) 40 mg PO QDAY Qty: 30 0RF acetaminophen 500 mg tablet 500 mg PO Q6H PRN (Reason: fever or pain) Qty: 10 0RF Referrals: Ignacio Bacon DPM [Physician, Podiatry] - In 1 week No Primary/Family,Physician [Primary Care Provider] - In 1 week Problem List Clinical Impression: Foot pain, Traumatic ecchymosis of foot, Fracture of toe Patient/Caregiver Discharge Instructions Education Materials: ED Soft Tissue Contusion, ED Fracture, Toe, Closed Print Language: Cymraes Stand Alone Forms: [employer] Info., Work/School Release, Patient Portal Info Letter REX/BRANDEN Supervising Physician PA/BRANDEN Supervising Physician: Frederick Starr ENP [facility] Clinical Information Provided by: patient Medical Records reviewed [facility] Meds/Rx considered, not ordered None Labs/Rad/Tests considered, not ordered None Chronic Illness/Social Conditions which may negatively complicate care or outcome(s)-explain: None or not applicable EKG EKG not done Labs Labs: interpreted by me Imaging Imaging interpretation: interpreted by me Imaging Interpretation(s): CT of the foot show the patient has nondisplaced fifth metatarsal fracture. Medication Administration(s) none Medication Administration History Discontinued Medications Acetaminophen (Acetaminophen 500 Mg Tablet) 1,000 mg PO X1 ONE Stop: 01/22/25 14:01 Last Admin: 01/22/25 15:57 Dose: Not Given Documented By: OA Non-Admin Reason: Patient Refused Ondansetron HCl (Ondansetron Odt 4 Mg Tabrap) 4 mg PO X1 ONE; Protocol Stop: 01/22/25 17:33 Last Admin: 01/22/25 17:53 Dose: 4 mg Documented By: BD Oxycodone/Acetaminophen (Oxycodone/Apap 5/325 Tablet) 2 tab PO X1 ONE Stop: 01/22/25 17:33 Last Admin: 01/22/25 17:53 Dose: 2 tab Documented By: JORJE Diagnosis Differential Diagnosis ED Complaint MDM: Compartment syndrome, toe fracture foot ecchymosis
[2025-01-22 17:50] VITALS: BP 131/86; PULSE 76; RESP 18; TEMP 36.8; O2SAT 97
[2025-01-22] MEDS: ONDANSETRON ODT 4 MG TABRAP PO (17:53)
== END 2025-01-22 17:57 | disposition home or self-care (01) ==
PROVIDERS: Emergency Provider Emergency Medicine
DX: S92.591A Other fracture of right lesser toe(s), initial encounter for closed fracture (principal); W19.XXXA Unspecified fall, initial encounter; R11.2 Nausea with vomiting, unspecified
CPT/HCPCS: 73700; 99283; Q0162; A9270

== ENCOUNTER → 2025-02-09 | Outpatient (CLI) | payer BC, SELFPAY ==
[2025-02-09 10:01] LABS: Alanine Aminotransferase 16 U/L (10-49); Albumin, Serum 4.9 gm/dL (3.5-5.0); Albumin/Globulin Ratio 2.0 (1.2-2.2); Alkaline Phosphatase 72 U/L (46-116); Anion Gap 8 (7-16); Aspartate Amino Transferase 15 U/L (0-34); BUN/Creatinine Ratio 13 Ratio (12-20); Bilirubin,Total 0.2 mg/dL (0.3-1.2); Blood Urea Nitrogen 10 mg/dL (9-23); Calcium 10.3 mg/dL (8.3-10.6); Calcium (Corrected) 10.3 mg/dL (8.5-10.1); Carbon Dioxide 27.1 mMol/L (20.0-31.0); Chloride 105 mMol/L (98-107); Creatinine (Component) 0.8 mg/dL (0.6-1.3); Globulin 2.4 gm/dL (2.3-3.5); Glucose 80 mg/dL (74-106); Osmolality,Calculated 277 (275-295); Potassium 4.3 mMol/L (3.4-5.1); Sodium 140 mMol/L (136-145); Total Protein 7.3 gm/dL (5.7-8.2); eGFR > 60 See Note
== END | disposition home or self-care (01) ==
LOC: COPL 08:55
PROVIDERS: PCP Internal Medicine Pulmonary Disease; Referring Provider Specialist; Visit Provider Specialist
DX: R10.32 Left lower quadrant pain (principal); R11.0 Nausea; R10.13 Epigastric pain
CPT/HCPCS: 36415; 80053

== ENCOUNTER → 2025-03-28 | Outpatient (CLI) | payer BC, SELFPAY ==
[2025-03-28 17:30] LABS: Basophils # (Auto) 0.0 Thou/mm3 (0.0-0.2); Basophils % (Auto) 0 % (0-2.5); Eosinophils # (Auto) 0.3 Thou/mm3 (0.0-0.5); Eosinophils % (Auto) 3 % (0-10); Hematocrit 39.4 % (36.0-46.0); Hemoglobin 12.5 g/dL (12.0-16.0); Immature Granulocytes Auto 0.03 Thou/mm3 (0.00-0.00); Lymphocytes # (Auto) 3.1 Thou/mm3 (1.0-4.8); Lymphocytes % (Auto) 34 % (10-50); Mean Corpuscular HGB Conc 31.7 g/dl (31.0-37.0); Mean Corpuscular Hemoglobin 28.1 pg (25.0-35.0); Mean Corpuscular Volume 89 fL (80-100); Monocytes # (Auto) 0.5 Thou/mm3 (0.0-0.8); Monocytes % (Auto) 5 % (0-12); Neutrophils # (Auto) 5.1 Thou/mm3 (1.8-7.7); Neutrophils % (Auto) 57 % (37-80); Nucleated Red Blood Cell # 0.00 Thou/mm3 (0.00-0.00); Nucleated Red Blood Cell % 0 /100 WBC (0); Platelet Count 320 Thou/mm3 (140-440); RDW Standard Deviation 49.4 fL (36.4-46.3); Red Blood Count 4.45 Miln/mm3 (4.00-5.20); White Blood Count 9.0 Thou/mm3 (3.6-11.0)
[2025-03-28 17:52] LABS: Alanine Aminotransferase 23 U/L (10-49); Albumin, Serum 4.7 gm/dL (3.5-5.0); Albumin/Globulin Ratio 1.7 (1.2-2.2); Alkaline Phosphatase 80 U/L (46-116); Anion Gap 10 (7-16); Aspartate Amino Transferase 19 U/L (0-34); BUN/Creatinine Ratio 13 Ratio (12-20); Bilirubin,Total < 0.2 mg/dL (0.3-1.2); Blood Urea Nitrogen 12 mg/dL (9-23); Calcium 9.7 mg/dL (8.3-10.6); Calcium (Corrected) 9.7 mg/dL (8.5-10.1); Carbon Dioxide 27.5 mMol/L (20.0-31.0); Chloride 103 mMol/L (98-107); Creatinine (Component) 0.9 mg/dL (0.6-1.3); Globulin 2.8 gm/dL (2.3-3.5); Glucose 121 mg/dL (74-106); Osmolality,Calculated 280 (275-295); Potassium 3.5 mMol/L (3.4-5.1); Sodium 140 mMol/L (136-145); Total Protein 7.5 gm/dL (5.7-8.2); eGFR > 60 See Note
== END | disposition home or self-care (01) ==
PROVIDERS: Referring Provider Specialist; Visit Provider Specialist
DX: R11.0 Nausea (principal); R14.0 Abdominal distension (gaseous); R10.30 Lower abdominal pain, unspecified
CPT/HCPCS: 36415; 80053; 85025